=== PATIENT | male | born 1995 ===

== ENCOUNTER 2020-12-12 10:55 | Outpatient (REF) | payer MEDICAID, SELFPAY | END 2020-12-12 10:56 | disposition home or self-care (01) | LOC: HO.LAB 10:55 | PROVIDERS: Visit Provider Internal Medicine | DX: Z20.822 Contact with and (suspected) exposure to COVID-19 (principal) | CPT/HCPCS: 36415; C9803; U0003; U0005 ==

== ENCOUNTER 2020-12-13 14:14 | Emergency (ER) | payer MEDICAID, SELFPAY ==
--- NOTE | ~2020-12-13 | XR_ITS ---
EXAMINATION: XR TOES, RIGHT CLINICAL INFORMATION: Pain COMPARISON: None TECHNIQUE: 3 views of the right toes were obtained. FINDINGS: There are no fractures or dislocations. No joint effusion is identified. No bone, joint or soft tissue abnormality is demonstrated. XR/XR toe RT min 2V IMPRESSION: No acute osseous abnormality of the right first toe.
[2020-12-13 14:37] VITALS: BP 115/74; PULSE 80; RESP 18; O2SAT 97; BMI 19.9
--- NOTE | 2020-12-13 15:56 | ED.LOWEXIN ---
HPI - Extremity Injury (Lower) General Chief Complaint: Extremity Injury, Lower <SUZANNA Mathew - Last Filed: 12/13/20 21:54> Stated Complaint: QUEST INGROWN TOENAIL R FOOT <SUZANNA Mathew - Last Filed: 12/13/20 21:54> Time Seen by Provider: 12/13/20 15:39 <SUZANNA Mathew - Last Filed: 12/13/20 21:54> History of Present Illness HPI Narrative: Patient complains of right big toe pain, it was red and swollen around the nail bed and had pus came out and now the pain is somewhat improved and the discomfort has been going on for several weeks gradually worsening around the nail bed, no acute injury <SUZANNA Mathew Last Filed: 12/13/20 21:54> Related Data Home Medications: Previous Rx's Medication Instructions Recorded cephalexin 500 mg PO QID 7 Days #28 tab 12/13/20 ibuprofen 600 mg PO Q6H PRN #20 tab 12/13/20 oxycodone-acetaminophen [Percocet] 1 tab PO Q6H PRN #7 tab 12/13/20 <SUZANNA Mathew - Last Filed: 12/13/20 21:54> Allergies/Adverse Reactions: Allergies Allergy/AdvReac Type Severity Reaction Status Date / Time No Known Allergies Allergy Verified 12/13/20 14:36 <SUZANNA Mathew - Last Filed: 12/13/20 21:54> Review of Systems Review of Systems: Positive for right big toe pain Negatives are no fever no chills no rash no joint pain no wounds no numbness weakness or paresthesias <SUZANNA Mathew - Last Filed: 12/13/20 21:54> [facility] Past Medical History Source: nursing notes reviewed <SUZANNA Mathew - Last Filed: 12/13/20 21:54> Medical History: Medical History (Updated 12/14/20 @ 00:00 by Omar Pires) Patient denies medical problems <SUZANNA Mathew - Last Filed: 12/13/20 21:54> Social History Social History: Social History Advance Directives: No Advance Directives Information Provided: No <SUZANNA Mathew Last Filed: 12/13/20 21:54> Physical Exam Vital Signs: Vital Signs: Last Vital Signs Pulse 80 12/13/20 14:37 Resp 18 12/13/20 14:37 BP 115/74 12/13/20 14:37 Pulse Ox 97 12/13/20 14:37 Body Mass Index 19.9 <SUZANNA Mathew - Last Filed: 12/13/20 21:54> Vital Signs: Last Vital Signs Pulse 80 12/13/20 14:37 Resp 18 12/13/20 14:37 BP 115/74 12/13/20 14:37 Pulse Ox 97 12/13/20 14:37 Body Mass Index 19.9 <Lenin Velazquez MD - Last Filed: 12/19/20 07:48> General appearance no acute distress Neck is supple Respiratory no acute distress Extremities the right big toe head redness around the nail bed on both sides of the toe there was no significant swelling there was mild erythema around the nail bed, there was full range of motion of the toe and of the foot there was no lymphangitis there was no wound no discharge <SUZANNA Mathew - Last Filed: 12/13/20 21:54> Course Course Course Narrative: Right big toe was cleansed with Betadine Digital block with 8 cc of 1% lidocaine achieved very good anesthesia Ingrown sections of the nail were removed from both sides of the nail, there was no pus but as there was some erythema around the nailbed patient was treated with antibiotic Dressing was applied <SUZANNA Mathew - Last Filed: 12/13/20 21:54> I have reviewed the chart <Lenin Velazquez MD - Last Filed: 12/19/20 07:48> Discharge Plan Discharge Clinical Impression: Ingrown nail <SUZANNA Mathew - Last Filed: 12/13/20 21:54> Patient Disposition: Home, Self-Care <SUZANNA Mathew - Last Filed: 12/13/20 21:54> Additional Instructions: I removed ingrown nails sections from both sides of the toe, it does look red and inflamed so we are going to do antibiotic for possible infection Return any time for worse pain and swelling, discharge from wound, spreading redness, any worse condition or any concerns 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 <SUZANNA Mathew Last Filed: 12/13/20 21:54> Prescriptions: New cephalexin 500 mg tablet 500 mg PO QID 7 Days Qty: 28 RF: 0 ibuprofen 600 mg tablet 600 mg PO Q6H PRN (Reason: pain) Qty: 20 RF: 0 oxycodone-acetaminophen [Percocet] 5-325 mg tablet 1 tab PO Q6H PRN (Reason: pain) Qty: 7 RF: 0 <SUZANNA Mathew - Last Filed: 12/13/20 21:54> Stand Alone Forms: Work/School Release <SUZANNA Mathew - Last Filed: 12/13/20 21:54> Interventions: ED Discharge Assessment Last Done: 12/13/20 16:55 <SUZANNA Mathew - Last Filed: 12/13/20 21:54> Discharge Date/Time: 12/13/20 16:55 <SUZANNA Mathew - Last Filed: 12/13/20 21:54>
[2020-12-13] MEDS: Lidocaine HCl 1 % MPF 5 ML VIAL SUBCUT ×2 (15:57)
[2020-12-13] MEDS: Ibuprofen 600 MG TABLET PO (16:45)
[2020-12-13] MEDS: cephALEXin 500 MG CAPSULE PO (16:46)
== END 2020-12-13 16:55 | disposition home or self-care (01) ==
PROVIDERS: Emergency Provider Emergency Medicine
DX: L60.0 Ingrowing nail (principal)
CPT/HCPCS: 11730; 73660; 99283; 99284

== ENCOUNTER 2021-07-07 10:34 | Outpatient (REF) | payer MEDICAID, SELFPAY | END 2021-07-07 10:35 | disposition home or self-care (01) | LOC: HO.LAB 10:34 | PROVIDERS: Visit Provider Internal Medicine | DX: Z20.822 Contact with and (suspected) exposure to COVID-19 (principal) | CPT/HCPCS: C9803; U0003; U0005 ==

== ENCOUNTER 2021-08-01 13:16 | Outpatient (REF) | payer MEDICAID, SELFPAY | END 2021-08-01 13:17 | disposition home or self-care (01) | LOC: HO.LAB 13:16 | PROVIDERS: Visit Provider Internal Medicine | DX: Z20.822 Contact with and (suspected) exposure to COVID-19 (principal) | CPT/HCPCS: C9803; U0003; U0005 ==

== ENCOUNTER 2021-08-30 07:52 | Emergency (ER) | payer MEDICAID, SELFPAY ==
[2021-08-30 07:59] VITALS: BP 131/76; PULSE 65; RESP 16; TEMP 36.6; O2SAT 97; BMI 19.9
--- NOTE | 2021-08-30 09:23 | ED_ITS ---
HPI - Dental/Oral General Chief complaint: Dental/Oral Stated complaint: dental pain Time Seen by Provider: 08/30/21 09:22 Source: patient Mode of arrival: ambulatory Limitations: no limitations History of Present Illness HPI Narrative: 26-year-old male came in for evaluation of dental pain. Started 2 days ago, no swelling or fluctuation, no facial swelling. Related Data Previous Rx's Medication Instructions Recorded cephalexin 500 mg tablet 500 mg PO QID 7 Days #28 tab 12/13/20 ibuprofen 600 mg tablet 600 mg PO Q6H PRN #20 tab 12/13/20 oxycodone-acetaminophen 5 mg-325 1 tab PO Q6H PRN #7 tab 12/13/20 mg tablet (Percocet) amoxicillin 500 mg tablet 500 mg PO Q12H #14 tab 08/30/21 Allergies Allergy/AdvReac Type Severity Reaction Status Date / Time No Known Allergies Allergy Verified 12/13/20 14:36 Review of Systems Review of Systems: All other systems are reviewed and are negative Constitutional: Reports as per HPI and Reports no additional constitutional complaints Eyes: Reports as per HPI and Reports no additional eye complaints Reports system reviewed and no additional complaints, except as documented Cardiovascular: Reports as per HPI and Reports no additional cardiovascular complaints Respiratory: Reports as per HPI and Reports no additional respiratory complaints Gastrointestinal: Reports as per HPI and Reports no additional gastrointestinal complaints Genitourinary: Reports no additional female genitourinary complaints Musculoskeletal: Reports no additional musculoskeletal complaints Skin/Breast: Reports system reviewed and no additional complaints, except as docu Psychiatric: Reports no additional psychiatric complaints Endocrine: Reports no additional endocrine complaints Hematologic/Lymphatic: Reports no additional hematologic/lymphatic complaints Allergic/Immunologic: Reports no additional allergic/immunologic complaints Reports system reviewed and no additional complaints, except as documented and Reports Abnormal speech present [facility] Past Medical History Medical History Patient denies medical problems Social History Social History Advance Directives: No Advance Directives Information Provided: No Physical Exam Vital Signs: Vital Signs: Last Vital Signs Temp 97.8 F 08/30/21 07:59 Pulse 65 08/30/21 07:59 Resp 16 08/30/21 07:59 BP 131/76 08/30/21 07:59 Pulse Ox 97 08/30/21 07:59 Body Mass Index 19.9 Vital signs have been reviewed as appeared to be correct. Blood pressure gilma l. Heart rate normal. Respiration rate normal. Temperature normal. Oxygen saturation normal. Appearance: Alert. Oriented X3. No acute distress. Head: Normal external exam. Normocephalic. Atraumatic. No Nation signs noted. No raccoon eyes noted Dental exam: Mild tenderness in the left upper 3rd molar tooth, no decay, no swelling, no fluctuation. Eyes: PERRLA. EOMI. Conjunctiva and sclera normal. Eyelids normal. ENT: TM's Normal. Pharynx normal. Uvula midline. Moist mucous membranes. No trismus noted. No drooling noted. No muffled voice noted. Neck: Normal inspection. Neck supple. FROM. No adenopathy. Thyroid Normal. No meningeal signs. No neck mass noted. CVS: Normal heart rate and rhythm. Heart sound normal. No murmurs noted. Pulses normal throughout. Respiratory: No respiratory distress. Painless inspiration. Breath sounds normal. No wheezes/rales/rhonchi noted. Chest nontender. No accessory muscle usage noted or decreased air movement noted. Abdomen: Soft and nontender. Bowel sounds normal in all 4 quadrants. No distention noted. No organomegaly noted. No visible injury noted. Back: No CVA tenderness. Full range of motion noted. Skin: Skin warm and dry. Normal skin color. Normal skin turgor. No rashes/lesions/lacerations noted. Extremities: No lower extremity edema. Extremities exhibit normal range of motion. Extremities nontender. Neuro: Oriented X 3. Cranial nerve exam: II-XII are grossly intact No motor deficit. No sensory deficit. Reflexes normal. Course Course Course Narrative: Assessment and plan. 26-year-old male came in with a dental pain, no anam cellulitis or abscess. Will start the patient on amoxicillin and follow-up with his dentist. Discharge Plan Discharge Clinical Impression: Toothache Patient Disposition: Home, Self-Care Instructions: Toothache (ED) Prescriptions: New amoxicillin 500 mg tablet 500 mg PO Q12H Qty: 14 RF: 0 No Action cephalexin 500 mg tablet 500 mg PO QID 7 Days Qty: 28 RF: 0 ibuprofen 600 mg tablet 600 mg PO Q6H PRN (Reason: pain) Qty: 20 RF: 0 oxycodone-acetaminophen [Percocet] 5-325 mg tablet 1 tab PO Q6H PRN (Reason: pain) Qty: 7 RF: 0 Referrals: [facility] [Primary Care Provider] - 2 days Stand Alone Forms: Work/School Release
== END 2021-08-30 09:38 | disposition home or self-care (01) ==
PROVIDERS: Emergency Provider Emergency Medicine
DX: K08.89 Other specified disorders of teeth and supporting structures (principal)
CPT/HCPCS: 99283

== ENCOUNTER 2022-01-30 13:02 | Emergency (ER) | payer MEDICAID, SELFPAY ==
--- NOTE | ~2022-01-30 | XR_ITS ---
EXAMINATION: XR CHEST CLINICAL INFORMATION: Cough. COMPARISON: None TECHNIQUE: 2 views of the chest were obtained. FINDINGS: No significant abnormality is noted involving the heart, lungs, mediastinum, bony thorax or soft tissues. XR/XR chest 2V IMPRESSION: Unremarkable chest examination.
[2022-01-30 14:28] VITALS: BP 135/67; PULSE 74; RESP 18; TEMP 37; O2SAT 97; BMI 21.4
[2022-01-30 14:57] LABS: COVID-19 Test Negative (Negative)
[2022-01-30 14:58] LABS: Influenza A Negative (Negative); Influenza B2 Negative (Negative)
--- NOTE | 2022-01-30 15:04 | ED.URI ---
HPI - URI/Sore Throat General Chief Complaint: Upper Respiratory Symptoms Stated Complaint: COUGH Time Seen by Provider: 01/30/22 14:57 Source: patient Mode of arrival: ambulatory Limitations: no limitations History of Present Illness HPI Narrative: Patient is a 26-year-old male no significant past medical history. Presents emergency department for evaluation of a persistent cough. It is intermittently productive and has some mild chest discomfort when coughing. Has tried cough drops with some relief, and cough syrup with no relief. Reports his significant other had tested positive for influenza one month ago and he to develop symptoms so he did not get tested. He does report that he had COVID-19 infection in October 2021, he is currently unvaccinated for COVID-19. Denies fevers, ear pain, ear drainage, nasal congestion, rhinorrhea, sore throat, neck pain, chest pain, palpitations, shortness of breath difficulty breathing, nausea, vomiting, abdominal pain, pedal edema. Related Data Previous Rx's Medication Instructions Recorded cephalexin 500 mg tablet 500 mg PO QID 7 Days #28 tab 12/13/20 ibuprofen 600 mg tablet 600 mg PO Q6H PRN #20 tab 12/13/20 oxycodone-acetaminophen 5 mg-325 1 tab PO Q6H PRN #7 tab 12/13/20 mg tablet (Percocet) amoxicillin 500 mg tablet 500 mg PO Q12H #14 tab 08/30/21 benzonatate 100 mg capsule 100 mg PO TID PRN 7 Days #20 cap 01/30/22 Allergies Allergy/AdvReac Type Severity Reaction Status Date / Time No Known Allergies Allergy Verified 01/30/22 14:27 Review of Systems Review of Systems: Constitutional: No weight loss, fever, chills, weakness or fatigue. Skin: No rash or itching. Cardiovascular: No chest pain, chest pressure or chest discomfort. No palpitations or pedal edema. Respiratory: + positive cough No shortness of breath, or sputum production. Gastrointestinal: No anorexia, nausea, vomiting or diarrhea. No abdominal pain or blood in stool. Genitourinary: No burning micturition. No urinary frequency or incontinence. Musculoskeletal: No muscle pain, back pain, joint pain or stiffness. Psychiatric: No depression or anxiety. [facility], [facility] Past Medical History Attestation statement: The following information was validated with the patient. Source: old records reviewed Medical History Patient denies medical problems Social History Social History Advance Directives: No Advance Directives Information Provided: Yes Physical Exam Vital Signs: Vital Signs: Last Vital Signs Temp 98.6 F 01/30/22 14:28 Pulse 74 01/30/22 14:28 Resp 18 01/30/22 14:28 BP 135/67 01/30/22 14:28 Pulse Ox 97 01/30/22 14:28 BMI result Body Mass Index 21.4 Vital signs have been reviewed as normal and appeared to be correct. Blood pressure normal.? Heart rate normal.? Respiration rate normal. Temperature normal.? Oxygen saturation normal. Appearance: Alert.?Oriented to person, place and time. No acute distress.?Normal affect. Eyes: Pupils equal, round and reactive to light.? ENT: Pharynx normal.?? Neck: Normal inspection.? Neck supple.?? CVS: Heart sounds normal. Normal heart rate and rhythm.? Pulses normal.?? Respiratory: No respiratory distress.? Lung sounds clear to auscultation bilaterally?? Abdomen: Soft and non-tender. Skin: Skin warm and dry.? Normal skin color.? Extremities: No lower extremity edema.? Neuro: Moves all extremities spontaneously. Sensation intact bilaterally. No focal neuro deficits. Ambulates with normal steady gait. Course Course Course Narrative: Patient is a 26 year male being evaluated for persistent cough x1 month. He is well appearing, nontoxic, afebrile, hemodynamically stable, managing secretions, speaking in clear full sentences, no apparent respiratory distress. No muffled voice, no hoarseness, not consistent with pharyngitis, peritonsillar abscess. Based on reported history does not seem consistent with allergic rhinitis or GERD, although we did discuss these possibilities. COVID- 19 and influenza testing obtained in triage were both negative. Chest x-ray reveals no acute findings. Cough is most consistent with bronchitisafter recent viral infection, given new prescription for benzonatate, discussed reasons to return back to the emergency department, and advised follow-up with primary care provider within 1 week. MDM - URI/Sore Throat Medical Records Attestation: I reviewed the patient's medical records. Lab Data Labs: Lab Results 01/30/22 01/30/22 Range/Units 14:34 14:34 COVID-19 (ALICE) Negative (Negative) COVID-19 Clin Com See Note Influenza Type A (EMELINA) Negative (Negative) Influenza Type B (EMELINA) Negative (Negative) Influenza A & B Note See Note Imaging Data Chest x-ray: Radiologist's impression: FINDINGS: No significant abnormality is noted involving the heart, lungs, mediastinum, bony thorax or soft tissues. XR/XR chest 2V IMPRESSION: Unremarkable chest examination. Discharge Plan Discharge Clinical Impression: Bronchitis Patient Disposition: Home, Self-Care Instructions: Acute Bronchitis (ED), Acute Cough (ED) Additional Instructions: Take Tessalon Perles prescribed. Please return to the emergency department worsened symptoms or concerns. You should contact your primary care provider to schedule follow-up visit within 1 week. Prescriptions: New benzonatate 100 mg capsule 100 mg PO TID PRN (Reason: cough) 7 Days Qty: 20 0RF No Action cephalexin 500 mg tablet 500 mg PO QID 7 Days Qty: 28 0RF ibuprofen 600 mg tablet 600 mg PO Q6H PRN (Reason: pain) Qty: 20 0RF oxycodone-acetaminophen [Percocet] 5-325 mg tablet 1 tab PO Q6H PRN (Reason: pain) Qty: 7 0RF amoxicillin 500 mg tablet 500 mg PO Q12H Qty: 14 0RF Referrals: Physician,Unknown J [Primary Care Provider] - 1 week Interventions: ED Discharge Assessment Last Done: 01/30/22 16:05 Discharge Date/Time: 01/30/22 16:06
== END 2022-01-30 16:06 | disposition home or self-care (01) ==
PROVIDERS: Emergency Provider Emergency Medicine
DX: J40 Bronchitis, not specified as acute or chronic (principal); Z20.822 Contact with and (suspected) exposure to COVID-19
CPT/HCPCS: 71046; 87502; 87635; 99282; 99283

== ENCOUNTER 2022-10-11 03:39 | Emergency (ER) | payer MEDICAID, SELFPAY ==
[2022-10-11 03:49] VITALS: BP 126/84; PULSE 95; RESP 18; TEMP 36.6; O2SAT 96; BMI 20.5
[2022-10-11 04:00] VITALS: BP 122/81; PULSE 58; TEMP 36.4; O2SAT 97
--- NOTE | 2022-10-11 04:00 | ED.HA ---
HPI - Headache General Chief Complaint: Headache Stated Complaint: migraine, nausea Time Seen by Provider: 10/11/22 03:50 Source: patient Mode of arrival: ambulatory Limitations: no limitations History of Present Illness HPI Narrative: 27-year-old male who presents emergency department for evaluation of a migraine headache. The patient states that he gets migraine headaches 2 to 3 times a week. He states that 3 days prior he developed a headache that has not gone away. He states that the pain came on gradually. The pain is located on the left side of his head, the pain is a constant, throbbing sensation which is 9/10 at its worst. The pain is associated with nausea without vomiting, photophobia and phonophobia. He denied change in his vision. He denied numbness or weakness. He denied fever, chills, neck pain, neck stiffness, chest pain, shortness of breath, abdominal pain. MD elicited complaint: migraine Pertinent past history: migraines Onset (ago): day(s) (3) Onset description: gradually Location: left Severity: severe Pain scale (0-10): 9 Quality & Timing: throbbing Exacerbating factors: light and noise Relieving factors: nothing Associated symptoms: nausea, photophobia and sensitivity to sound Related Data Previous Rx's Medication Instructions Recorded cephalexin 500 mg tablet 500 mg PO QID 7 days #28 tabs 12/13/20 ibuprofen 600 mg tablet 600 mg PO Q6H PRN pain #20 tabs 12/13/20 oxycodone-acetaminophen 5 mg-325 1 tab PO Q6H PRN pain #7 tabs 12/13/20 mg tablet (Percocet) amoxicillin 500 mg tablet 500 mg PO Q12H #14 tabs 08/30/21 benzonatate 100 mg capsule 100 mg PO TID PRN cough 1 week #20 01/30/22 caps metoclopramide HCl 10 mg tablet 10 mg PO Q6H PRN nausea and 10/11/22 (Reglan) vomiting #14 tabs Allergies Allergy/AdvReac Type Severity Reaction Status Date / Time No Known Allergies Allergy Verified 01/30/22 14:27 Review of Systems Review of Systems: Yes all other systems are reviewed and are negative PMFSH Past Medical History [facility] Narrative: Past medical history: Migraines. Past surgical history: None. Social history: The patient denies tobacco use. He states that he rarely drinks alcohol. He denies drug use Medical History Patient denies medical problems Social History Social History Alcohol intake: current Alcohol intake frequency: holidays/special occasions only Smoked in Last 30 Days: No Use of substances other than those prescribed or required for medical reasons: No Advance Directives: No Physical Exam Vital Signs: Vital Signs: Last Vital Signs Temp 97.6 F 10/11/22 04:00 Pulse 58 10/11/22 04:00 Resp 18 10/11/22 03:49 BP 122/81 10/11/22 04:00 Pulse Ox 97 10/11/22 04:00 O2 Del Method 10/11/22 04:00 BMI result Body Mass Index 20.5 Const: General: cooperative and no acute distress Orientation/consciousness: oriented to person and oriented to place Limitations: no limitations HEENT: Head: Yes normal to inspection, Yes normocephalic and Yes atraumatic Ears: external ears normal General nose exam: Normal external nose present Face and sinus: Yes normal facial exam Mouth: Normal oral and palatal mucosa present Throat: Yes posterior oropharynx normal Eyes: General: appearance normal, both eyes and all related structures Pupils: Equal, round and reactive pupils present Neck: Neck: Yes normal visual inspection, Yes no lymphadenopathy, Yes trachea midline and Yes supple Chest: Chest palpation & inspection: normal inspection of the chest and normal palpation of entire chest wall Resp: Effort & Inspection: normal respiratory effort and able to speak in complete sentences Auscultation: clear to auscultation bilaterally Cardio: Rate: regular rate Rhythm: regular rhythm Heart sounds: S1 normal heart sound present, S2 normal heart sound present and no murmurs GI: Inspection: Yes normal to inspection Palpation (GI): Soft to palpation, nontender and no guarding Auscultation: normal bowel sounds : General: Yes no CVA tenderness Back/Spine/Pelvis: Back: no CVA tenderness Skin: General skin exam: no rashes or lesions noted Neuro: General: oriented to person and oriented to place Cranial nerves: Yes CN's II-XII intact bilaterally and Yes Equal, round and reactive pupils present Cognition (Neuro): normal cognition Motor exam (neuro): 5/5 motor strength present throughout Extrem: General: Yes normal to inspection Psych: Appearance: grossly normal Speech and movement: Normal speech and movement present Affect: normal affect Attitude: cooperative Thought process: Normal thought process present Thought content: Normal thought content present Course Course Course Narrative: 27-year-old male who presents emergency department for evaluation of a migraine headache. Patient does have a history of migraines. He states that this they came on gradually 3 days prior. He took ibuprofen with no relief for the pain. The pain is a left-sided throbbing sensation which is 9/10 at its worst. It associated nausea, photophobia and phonophobia. Patient's physical examination was unremarkable. I ordered normal saline x1 L, Benadryl 50 mg IV and Reglan 10 mg IV. 0556: Patient's headache resolved completely. The patient will be discharged home. Patient will be started on a migraine regimen of regular and 10 mg, Benadryl 50 mg Excedrin migraine 2 tablets every 6 hours as needed for migraine headaches. Medications Administered Discontinued Medications Generic Name Dose Route Start Last Admin Trade Name Ana PRN Reason Stop Dose Admin Diphenhydramine HCl 50 mg 10/11/22 04:00 10/11/22 04:12 Diphenhydramine Hcl 50 Mg/Ml Vial IVPUSH 10/11/22 04:01 50 mg ONCE STA Administration Sodium Chloride 1,000 mls @ 999 mls/hr 10/11/22 04:00 10/11/22 05:33 Ns IV 10/11/22 05:00 Infused .Q1H1M STA Infusion Ketorolac Tromethamine 30 mg 10/11/22 04:01 10/11/22 04:11 Ketorolac Tromethamine 15 Mg/Ml Vial IVPUSH 10/11/22 04:02 30 mg ONCE STA Administration Metoclopramide HCl 10 mg 10/11/22 04:00 10/11/22 04:11 Metoclopramide Hcl 10 Mg/2 Ml Vial IVPUSH 10/11/22 04:01 10 mg ONCE STA Administration Discharge Plan Discharge Clinical Impression: Migraine Patient Disposition: Home, Self-Care Instructions: Migraine Headache (ED) Additional Instructions: Your symptoms are consistent with a migraine. I want you to take the following 3 medications together every 6 hours as needed for headache, nausea or vomiting. Reglan (metoclopramide) in 10 mg, 1 pill Benadryl 25 mg, 2 pills Excedrin migraine, 2 pills. After you take these medications, lie down in a dark quiet room and try to fall asleep. These medications will make you sleepy, do not drive or work after taking these medications. Follow-up with your doctor in 2 days. Please return to the emergency department if your symptoms get worse or if you develop any symptoms that are concerning to you. Prescriptions: New metoclopramide HCl [Reglan] 10 mg tablet 10 mg PO Q6H PRN (Reason: nausea and vomiting) Qty: 14 0RF No Action cephalexin 500 mg tablet 500 mg PO QID 7 Days Qty: 28 0RF ibuprofen 600 mg tablet 600 mg PO Q6H PRN (Reason: pain) Qty: 20 0RF oxycodone-acetaminophen [Percocet] 5-325 mg tablet 1 tab PO Q6H PRN (Reason: pain) Qty: 7 0RF amoxicillin 500 mg tablet 500 mg PO Q12H Qty: 14 0RF benzonatate 100 mg capsule 100 mg PO TID PRN (Reason: cough) 7 Days Qty: 20 0RF
[2022-10-11] MEDS: Ketorolac Tromethamine 15 MG/ML VIAL 30 MG IVPUSH (04:11)
[2022-10-11] MEDS: Metoclopramide HCl 10 MG/2 ML VIAL IVPUSH (04:11)
[2022-10-11] MEDS: 0.9 % Sodium Chloride 1,000 ML 999 ML IV (04:12)
[2022-10-11] MEDS: diphenhydrAMINE HCL 50 MG/ML VIAL IVPUSH (04:12)
== END 2022-10-11 06:17 | disposition home or self-care (01) ==
PROVIDERS: Emergency Provider Emergency Medicine Emergency Medical Services
DX: G43.909 Migraine, unspecified, not intractable, without status migrainosus (principal); H53.143 Visual discomfort, bilateral; Z79.899 Other long term (current) drug therapy
CPT/HCPCS: 96361; 96374; 96375; 99284; 99285; J1200; J1885; J2765

== ENCOUNTER 2023-01-24 03:04 | Emergency (ER) | payer MEDICAID, SELFPAY ==
--- NOTE | ~2023-01-24 | XR_ITS ---
EXAMINATION: XR CHEST CLINICAL INFORMATION: Cough COMPARISON: 01/30/2022 TECHNIQUE: Frontal view of the chest was obtained. FINDINGS: The lungs are well expanded. There is no focal consolidation, edema, or effusion. No pneumothorax. The cardiomediastinal silhouette is within normal limits. No acute osseous abnormality. XR/XR chest 1V IMPRESSION: Clear lungs.
[2023-01-24 03:13] VITALS: BP 140/81; PULSE 71; RESP 16; TEMP 36.5; O2SAT 97; BMI 21.8
[2023-01-24 03:35] LABS: MANUAL DIFF FLAG NO
[2023-01-24 03:36] LABS: Basophils Absolute Auto 0.1 X10*3/uL (0.0-0.2); Basophils Percent Auto 0.6 % (0-2); Eosinophils Absolute Auto 1.1 X10*3/uL (0.0-0.4); Eosinophils Percent Auto 8.3 % (0-4); Hematocrit 46.5 % (42.0-52.0); Hemoglobin 15.8 g/dl (14.0-18.0); Imm Gran Abs Auto 0.08 X10*3/uL (0.00-0.03); Imm Gran Pct Auto 0.6 % (0.0-0.4); Lymphocytes Absolute Auto 2.8 X10*3/uL (1.2-4.9); Lymphocytes Percent Auto 21.7 % (20-40); Mean Corpuscular Volume 88.2 fL (80.0-98.0); Mean Platelet Volume 10.7 fL (9.4-12.4); Monocytes Absolute Auto 0.8 X10*3/uL (0.1-1.2); Monocytes Percent Auto 6.4 % (2-11); Neutrophils Absolute Auto 7.9 x10*3/uL (2.0-8.3); Neutrophils Percent Auto 62.4 % (45-73); Platelet Count 278 X10*3/uL (160-400); Red Blood Count 5.27 X10*6/uL (4.60-5.80); Red Cell Distribution Width 11.9 % (11.0-16.0); White Blood Count 12.7 X10*3/uL (4.8-10.8)
[2023-01-24 03:49] LABS: Anion Gap 14 (12-20); Blood Urea Nitrogen 13 mg/dL (9-16); Carbon Dioxide 24 mmol/L (22-29); Chloride 106 mmol/L (96-108); Creatinine Clr Calc Pharmacy 132.9; Estimated Glomerular Filt Rate > 60; Glucose Random 97 mg/dL (60-115); Potassium 4.2 mmol/L (3.3-5.1); Sodium 140 mmol/L (135-145)
[2023-01-24 03:50] LABS: COVID-19 Test Negative (Negative); IDNOW Serial# 08D9AD1C; IDNOW Serial# BCCEAD1C; Influenza A Negative (Negative); Influenza B2 Negative (Negative)
--- NOTE | 2023-01-24 04:36 | ED_ITS ---
HPI - URI/Sore Throat General Chief Complaint: Upper Respiratory Symptoms Stated Complaint: cough Time Seen by Provider: 01/24/23 04:26 Source: patient Mode of arrival: ambulatory Limitations: no limitations History of Present Illness HPI Narrative: Patient otherwise healthy been congested for last 4 days with nasal congestion clear discharge dry cough and pleuritic right chest pain no fever no nausea vomiting diarrhea Related Data Previous Rx's Medication Instructions Recorded cephalexin 500 mg tablet 500 mg PO QID 7 days #28 tabs 12/13/20 ibuprofen 600 mg tablet 600 mg PO Q6H PRN pain #20 tabs 12/13/20 oxycodone-acetaminophen 5 mg-325 1 tab PO Q6H PRN pain #7 tabs 12/13/20 mg tablet (Percocet) amoxicillin 500 mg tablet 500 mg PO Q12H #14 tabs 08/30/21 benzonatate 100 mg capsule 100 mg PO TID PRN cough 1 week #20 01/30/22 caps metoclopramide HCl 10 mg tablet 10 mg PO Q6H PRN nausea and 10/11/22 (Reglan) vomiting #14 tabs amoxicillin 875 mg-potassium 1 tab PO BID #20 tabs 01/24/23 clavulanate 125 mg tablet benzonatate 200 mg capsule 200 mg PO TID PRN cough #20 caps 01/24/23 prednisone 20 mg tablet 40 mg PO DAILY #10 tabs 01/24/23 Allergies Allergy/AdvReac Type Severity Reaction Status Date / Time No Known Allergies Allergy Verified 01/24/23 03:16 Review of Systems Review of Systems: Yes all other systems are reviewed and are negative PMFSH Past Medical History Medical History Patient denies medical problems Social History Social History Alcohol intake: current Alcohol intake frequency: holidays/special occasions only Advance Directives: No Advance Directives Information Provided: Yes Physical Exam Vital Signs: Vital Signs: Last Vital Signs Temp 97.8 F 01/24/23 04:53 Pulse 71 01/24/23 04:53 Resp 16 01/24/23 04:53 BP 120/75 01/24/23 04:53 Pulse Ox 97 01/24/23 04:53 O2 Del Method Room Air 01/24/23 04:53 BMI result Body Mass Index 21.8 Appearance: Alert. Oriented X3. No acute distress. Eyes: No pallor or icterus ENT: Pharynx normal. Oral Mucosa moist postnasal drip++ inflamed nasal turbinate Neck: Normal inspection. Neck supple. CVS: Normal heart rate and rhythm. Pulses normal. Respiratory: No respiratory distress. Equal air entry bilateral, prolonged expiration frequent cough Abdomen: Soft and nontender. Bowel sounds are present, Skin: Skin warm and dry. Normal skin color. Normal skin turgor. Extremities: No lower extremity edema. No calf tenderness Neuro: Oriented X 3. No motor deficit. Medications Administered Discontinued Medications Generic Name Dose Route Start Last Admin Trade Name Freq PRN Reason Stop Dose Admin Amoxicillin/Clavulanate Potassium 875 mg 01/24/23 05:06 01/24/23 05:14 Amoxicillin/Potassium Clav 875 Mg Tablet PO 01/24/23 05:07 875 mg ONCE ONE Administration Benzonatate 200 mg 01/24/23 04:45 01/24/23 04:55 Benzonatate 100 Mg Capsule PO 01/24/23 04:46 200 mg ONCE ONE Administration Dexamethasone 10 mg 01/24/23 04:45 01/24/23 04:55 Dexamethasone 2 Mg Tablet PO 01/24/23 04:46 10 mg ONCE ONE Administration Medical Decision Making Lab Data 01/24/23 03:30 01/24/23 03:30 Labs: Lab Results 01/24/23 01/24/23 01/24/23 Range/Units 03:30 03:30 03:30 WBC 12.7 H (4.8-10.8) X10*3/uL RBC 5.27 (4.60-5.80) X10*6/uL Hgb 15.8 (14.0-18.0) g/dl Hct 46.5 (42.0-52.0) % MCV 88.2 (80.0-98.0) fL MCH 30.0 (27.0-33.0) pg MCHC 34.0 (31.0-36.0) g/dl RDW 11.9 (11.0-16.0) % Plt Count 278 (160-400) X10*3/uL MPV 10.7 (9.4-12.4) fL Immature Gran % (Auto) 0.6 H (0.0-0.4) % Neut % (Auto) 62.4 (45-73) % Lymph % (Auto) 21.7 (20-40) % [facility] % (Auto) 6.4 (2-11) % Eos % (Auto) 8.3 H (0-4) % Baso % (Auto) 0.6 (0-2) % Lymph # (Auto) 2.8 (1.2-4.9) X10*3/uL [facility] # (Auto) 0.8 (0.1-1.2) X10*3/uL Eos # (Auto) 1.1 H (0.0-0.4) X10*3/uL Baso # (Auto) 0.1 (0.0-0.2) X10*3/uL Abs Immat Gran (auto) 0.08 H (0.00-0.03) X10*3/uL Absolute Neuts (auto) 7.9 (2.0-8.3) x10*3/uL Absolute Nucleated RBC 0.000 (0.0-0.012) X10*3/uL Nucleated RBC % (auto) 0.0 (0.0-0.2) /100WBC Sodium (135-145) mmol/L Potassium (3.3-5.1) mmol/L Chloride (96-108) mmol/L Carbon Dioxide (22-29) mmol/L Anion Gap (12-20) BUN (9-16) mg/dL Creatinine (0.5-1.4) mg/dL Estim Creat Clear Calc Estimated GFR Random Glucose (60-115) mg/dL Calcium (8.4-10.2) mg/dL COVID-19 (ALICE) Negative (Negative) COVID-19 Clin Com See Note Influenza Type A (EMELINA) Negative (Negative) Influenza Type B (EMELINA) Negative (Negative) Influenza A & B Note See Note 01/24/23 Range/Units 03:30 WBC (4.8-10.8) X10*3/uL RBC (4.60-5.80) X10*6/uL Hgb (14.0-18.0) g/dl Hct (42.0-52.0) % MCV (80.0-98.0) fL MCH (27.0-33.0) pg MCHC (31.0-36.0) g/dl RDW (11.0-16.0) % Plt Count (160-400) X10*3/uL MPV (9.4-12.4) fL Immature Gran % (Auto) (0.0-0.4) % Neut % (Auto) (45-73) % Lymph % (Auto) (20-40) % [facility] % (Auto) (2-11) % Eos % (Auto) (0-4) % Baso % (Auto) (0-2) % Lymph # (Auto) (1.2-4.9) X10*3/uL [facility] # (Auto) (0.1-1.2) X10*3/uL Eos # (Auto) (0.0-0.4) X10*3/uL Baso # (Auto) (0.0-0.2) X10*3/uL Abs Immat Gran (auto) (0.00-0.03) X10*3/uL Absolute Neuts (auto) (2.0-8.3) x10*3/uL Absolute Nucleated RBC (0.0-0.012) X10*3/uL Nucleated RBC % (auto) (0.0-0.2) /100WBC Sodium 140 (135-145) mmol/L Potassium 4.2 (3.3-5.1) mmol/L Chloride 106 (96-108) mmol/L Carbon Dioxide 24 (22-29) mmol/L Anion Gap 14 (12-20) BUN 13 (9-16) mg/dL Creatinine 0.91 (0.5-1.4) mg/dL Estim Creat Clear Calc 132.9 Estimated GFR > 60 Random Glucose 97 (60-115) mg/dL Calcium 9.0 (8.4-10.2) mg/dL COVID-19 (ALICE) (Negative) COVID-19 Clin Com Influenza Type A (EMELINA) (Negative) Influenza Type B (EMELINA) (Negative) Influenza A & B Note Discharge Plan Discharge Clinical Impression: Bronchitis Patient Disposition: Home, Self-Care Instructions: Acute Bronchitis (ED) Additional Instructions: Drink plenty of fluids Take medication as prescribed Follow with PCP if not better Prescriptions: New benzonatate 200 mg capsule 200 mg PO TID PRN (Reason: cough) Qty: 20 0RF prednisone 20 mg tablet 40 mg PO DAILY Qty: 10 0RF amoxicillin-pot clavulanate 875-125 mg tablet 1 tab PO BID Qty: 20 0RF No Action cephalexin 500 mg tablet 500 mg PO QID 7 Days Qty: 28 0RF ibuprofen 600 mg tablet 600 mg PO Q6H PRN (Reason: pain) Qty: 20 0RF oxycodone-acetaminophen [Percocet] 5-325 mg tablet 1 tab PO Q6H PRN (Reason: pain) Qty: 7 0RF metoclopramide HCl [Reglan] 10 mg tablet 10 mg PO Q6H PRN (Reason: nausea and vomiting) Qty: 14 0RF amoxicillin 500 mg tablet 500 mg PO Q12H Qty: 14 0RF benzonatate 100 mg capsule 100 mg PO TID PRN (Reason: cough) 7 Days Qty: 20 0RF
[2023-01-24 04:53] VITALS: BP 120/75; PULSE 71; RESP 16; TEMP 36.6; O2SAT 97
[2023-01-24] MEDS: dexAMETHasone 2 MG TABLET 10 MG PO (04:55)
[2023-01-24] MEDS: Benzonatate 100 MG CAPSULE 200 MG PO (04:55)
[2023-01-24] MEDS: Amoxicillin/Potassium Clav 875 MG TABLET PO (05:14)
== END 2023-01-24 05:40 | disposition home or self-care (01) ==
PROVIDERS: Emergency Provider Internal Medicine
DX: J40 Bronchitis, not specified as acute or chronic (principal); R05.9 Cough, unspecified; R07.89 Other chest pain; Z79.899 Other long term (current) drug therapy; Z20.822 Contact with and (suspected) exposure to COVID-19; Z20.828 Contact with and (suspected) exposure to other viral communicable diseases
CPT/HCPCS: 71045; 80048; 85025; 87502; 87635; 99283; 99284; J8540

== ENCOUNTER 2023-03-12 07:01 | Emergency (ER) | payer MEDICAID, SELFPAY ==
--- NOTE | 2023-03-12 | ECG_ITS ---
Test Reason : CP Blood Pressure : / mmHG Vent. Rate : 055 BPM Atrial Rate : 055 BPM P-R Int : 142 ms QRS Dur : 090 ms QT Int : 402 ms P-R-T Axes : 013 042 011 degrees QTc Int : 384 ms Sinus bradycardia with sinus arrhythmia Otherwise normal ECG No previous ECGs available Referred By: Generic ED Physician Electronically Signed By:Mack Sultana
--- NOTE | ~2023-03-12 | XR_ITS ---
EXAMINATION: XR CHEST CLINICAL INFORMATION: Chest pain COMPARISON: Previous chest x-ray most recent December 2022 TECHNIQUE: 2 views of the chest were obtained. FINDINGS: No significant abnormality is noted involving the heart, lungs, mediastinum, bony thorax or soft tissues. XR/XR chest 2V IMPRESSION: Unremarkable examination.
[2023-03-12 07:12] VITALS: BP 104/78; PULSE 66; RESP 18; TEMP 36.5; O2SAT 98; BMI 21.8
[2023-03-12 07:26] VITALS: BP 123/80; PULSE 98; RESP 16; TEMP 36.7; O2SAT 98
--- NOTE | 2023-03-12 07:26 | ED_ITS ---
HPI - Chest Pain General Chief Complaint: Chest Pain Stated Complaint: Intermittent Chest Pain & Arm Pain Time Seen by Provider: 03/12/23 07:26 Source: patient Mode of arrival: ambulatory Limitations: no limitations History of Present Illness HPI narrative: Patient is a 27 year old assigned male at with no reported medical history presenting to the emergency department today with central chest pain. Patient s tates that he has had intermittent chest pain for weeks. Patient states that it is in the center of his chest and gets worse after he eats. Patient states that it randomly comes and randomly goes. Patient denies any dizziness, lightheadedness, abdominal pain, nausea, vomiting, fever, chills, blurry vision, double vision, loss of vision, difficulty breathing, shortness of breath, back pain, night sweats, pain with urination, increased urinary frequency, increased urinary urgency, blood in his urine or stool, syncope or a near syncopal episode, recent trauma or falls, bowel incontinence, bladder incontinence, bowel retention, bladder retention, or any other complaints at this time. Related Data Previous Rx's Medication Instructions Recorded cephalexin 500 mg tablet 500 mg PO QID 7 days #28 tabs 12/13/20 ibuprofen 600 mg tablet 600 mg PO Q6H PRN pain #20 tabs 12/13/20 oxycodone-acetaminophen 5 mg-325 1 tab PO Q6H PRN pain #7 tabs 12/13/20 mg tablet (Percocet) amoxicillin 500 mg tablet 500 mg PO Q12H #14 tabs 08/30/21 benzonatate 100 mg capsule 100 mg PO TID PRN cough 1 week #20 01/30/22 caps metoclopramide HCl 10 mg tablet 10 mg PO Q6H PRN nausea and 10/11/22 (Reglan) vomiting #14 tabs amoxicillin 875 mg-potassium 1 tab PO BID #20 tabs 01/24/23 clavulanate 125 mg tablet benzonatate 200 mg capsule 200 mg PO TID PRN cough #20 caps 01/24/23 prednisone 20 mg tablet 40 mg PO DAILY #10 tabs 01/24/23 omeprazole 40 mg capsule,delayed 40 mg PO DAILY #30 caps 03/12/23 release Allergies Allergy/AdvReac Type Severity Reaction Status Date / Time No Known Allergies Allergy Verified 03/12/23 07:15 Review of Systems Constitutional: Constitutional: Reports no additional constitutional complaints, Denies chills, Denies fever(s) and Denies night sweats Eyes: Eyes: Reports no additional eye complaints, Denies blurry vision, Denies change in vision, Denies diplopia, Denies eye discharge, Denies loss of vision and Denies eye pain ENT: Denies dizziness Cardiovascular: Cardiovascular: Reports no additional cardiovascular complaints, Reports chest pain (intermittent), Denies lightheadedness, Denies Loss of Consciousness and Denies dyspnea Respiratory: Respiratory: Reports no additional respiratory complaints and Denies dyspnea Gastrointestinal: Gastrointestinal: Reports no additional gastrointestinal complaints, Denies abdominal pain, Denies melena, Denies hematochezia, Denies change in bowel habits and Denies change in stool character Genitourinary: Genitourinary: Reports no additional male genitourinary complaints, Denies hematuria, Denies oliguria, Denies difficulty urinating, Denies dysuria, Denies urinary frequency, Denies urinary hesitancy, Denies urinary incontinence and Denies urinary urgency Musculoskeletal: Musculoskeletal: Reports no additional musculoskeletal complaints, Denies numbness and Denies tingling Neurologic: Denies dizziness, Denies loss of vision, Denies numbness and Denies tingling Psychiatric: Psychiatric: Reports no additional psychiatric complaints Endocrine: Endocrine: Reports no additional endocrine complaints Hematologic/Lymphatic: Hematologic/Lymphatic: Reports no additional hematologic/lymphatic complaints Allergic/Immunologic: Allergic/Immunologic: Reports no additional allergic/immunologic complaints [facility] Past Medical History Attestation statement: The following information was validated with the patient. Source: old records reviewed and nursing notes reviewed Medical History Patient denies medical problems Social History Social History Alcohol intake: current Alcohol intake frequency: holidays/special occasions only Smoked in Last 30 Days: No Use of substances other than those prescribed or required for medical reasons: No Advance Directives: No Advance Directives Information Provided: No Physical Exam Vital Signs: Vital Signs: Last Vital Signs Temp 98.1 F 03/12/23 07:26 Pulse 98 03/12/23 07:26 Resp 16 03/12/23 07:26 BP 123/80 03/12/23 07:26 Pulse Ox 98 03/12/23 07:26 O2 Del Method Room Air 03/12/23 07:26 BMI result Body Mass Index 21.8 Const: General: cooperative, no acute distress, alert and awake Nutritional Appearance: well nourished Orientation/consciousness: patient oriented x3 Limitations: no limitations HEENT: Head: Yes normal to inspection and Yes atraumatic Ears: hearing john ssly normal bilaterally and external ears normal General nose exam: Normal external nose present, no nasal discharge noted and no epistaxis Face and sinus: Yes normal facial exam, No abrasion and No laceration Mouth: Normal oral and palatal mucosa present, no drooling and no muffled voice Eyes: General: appearance normal, both eyes and all related structures Periorbital: periorbital findings normal Eyelids: Yes eyelids normal Conjunctivae: conjunctivae normal Pupils: Equal, round and reactive pupils present EOM: EOMs intact bilaterally Neck: Neck: Yes normal visual inspection, Yes full ROM and Yes no lymphadenopathy Chest: Chest palpation & inspection: normal inspection of the chest Resp: Effort & Inspection: normal respiratory effort and able to speak in co mplete sentences Auscultation: clear to auscultation bilaterally Cardio: Rate: regular rate Rhythm: regular rhythm GI: Inspection: Yes normal to inspection Palpation (GI): Soft to palpation, not firm, nontender, no guarding and not rigid Neuro: General: patient oriented x3 and moves all extremities Cranial nerves: Yes Equal, round and reactive pupils present Cognition (Neuro): normal cognition Motor exam (neuro): 5/5 motor strength present throughout Sensory Exam: Normal double simultaneous stimulation for sensation Coordination: [id number] test normal Extrem: General: Yes normal to inspection, Yes full ROM and Yes capillary refill normal Psych: Appearance: grossly normal Mental Status: mental status grossly normal Affect: normal affect Attitude: cooperative Thought process: Normal thought process present Thought content: Normal thought content present Insight: Good insight present (Psych) Medical Decision Making Medical Decision Making MDM Narrative: Patient is a 27 year old assigned male at with no reported medical history presenting to the emergency department today with intermittent chest pain. Patient's physical exam was unremarkable. Patient's blood work was unremarkable. Patient's EKG was unremarkable. Patient's chest x-ray showed no acute process. I explained my physical exam findings as well as all test results to the patient. I answered all questions asked by the patient. I stressed the importance of the patient taking his medication as prescribed. I stressed the importance of the patient following up with his primary care provider. I stressed the importance of the patient returning to the emergency department immediately if his symptoms were to worsen or if he were to develop any dizziness, shortness of breath, d ifficulty breathing, chest pain, blurry vision, loss of vision, nausea, vomiting, abdominal pain, fever, chills, back pain, or any other complaints. Patient verbalized agreement and understanding with this treatment plan and discharge. Differential Diagnosis Differential Diagnoses: The differential diagnosis associated with the presentat ion includes chest pain, GERD Admission/Observation Consideration of admission/observation: Escalation of care including admiss ion/observation considered Patient would have been admitted had there been evidence of a cardiopulmonary cause for his chest pain on his work up. Lab Data MDM Lab Attestation statement: I reviewed the patient's lab results. 03/12/23 07:39 03/12/23 07:39 Labs: Lab Results 03/12/23 03/12/23 03/12/23 Range/Units 07:39 07:39 07:39 WBC 8.4 (4.8-10.8) X10*3/uL RBC 5.41 (4.60-5.80) X10*6/uL Hgb 16.2 (14.0-18.0) g/dl Hct 47.8 (42.0-52.0) % MCV 88.4 (80.0-98.0) fL MCH 29.9 (27.0-33.0) pg MCHC 33.9 (31.0-36.0) g/dl RDW 11.9 (11.0-16.0) % Plt Count 249 (160-400) X10*3/uL MPV 10.6 (9.4-12.4) fL Immature Gran % (Auto) 0.6 H (0.0-0.4) % Neut % (Auto) 61.2 (45-73) % Lymph % (Auto) 23.4 (20-40) % [facility] % (Auto) 6.1 (2-11) % Eos % (Auto) 8.0 H (0-4) % Baso % (Auto) 0.7 (0-2) % Lymph # (Auto) 2.0 (1.2-4.9) X10*3/uL [facility] # (Auto) 0.5 (0.1-1.2) X10*3/uL Eos # (Auto) 0.7 H (0.0-0.4) X10*3/uL Baso # (Auto) 0.1 (0.0-0.2) X10*3/uL Abs Immat Gran (auto) 0.05 H (0.00-0.03) X10*3/uL Absolute Neuts (auto) 5.1 (2.0-8.3) x10*3/uL Absolute Nucleated RBC 0.000 (0.0-0.012) X10*3/uL Nucleated RBC % (auto) 0.0 (0.0-0.2) /100WBC Sodium 139 (135-145) mmol/L Potassium 4.0 (3.3-5.1) mmol/L Chloride 104 (96-108) mmol/L Carbon Dioxide 27 (22-29) mmol/L Anion Gap 12 (12-20) BUN 17 H (9-16) mg/dL Creatinine 1.00 (0.5-1.4) mg/dL Estim Creat Clear Calc 121.0 Estimated GFR > 60 Random Glucose 98 (60-115) mg/dL Calcium 9.2 (8.4-10.2) mg/dL Magnesium 2.0 (1.6-2.6) mg/dL Total Bilirubin 0.6 (0.0-1.0) mg/dL AST 13 (5-37) U/L ALT 13 (0-40) U/L Alkaline Phosphatase 68 (39-117) U/L Troponin I High Sens 14.6 (<3.5-35.0) ng/L Total Protein 6.9 (6.5-8.0) g/dL Albumin 4.3 (3.5-5.0) g/dL COVID-19 (ALICE) (Negative) COVID-19 Clin Com 03/12/23 Range/Units 07:39 WBC (4.8-10.8) X10*3/uL RBC (4.60-5.80) X10*6/uL Hgb (14.0-18.0) g/dl Hct (42.0-52.0) % MCV (80.0-98.0) fL MCH (27.0-33.0) pg MCHC (31.0-36.0) g/dl RDW (11.0-16.0) % Plt Count (160-400) X10*3/uL MPV (9.4-12.4) fL Immature Gran % (Auto) (0.0-0.4) % Neut % (Auto) (45-73) % Lymph % (Auto) (20-40) % [facility] % (Auto) (2-11) % Eos % (Auto) (0-4) % Baso % (Auto) (0-2) % Lymph # (Auto) (1.2-4.9) X10*3/uL [facility] # (Auto) (0.1-1.2) X10*3/uL Eos # (Auto) (0.0-0.4) X10*3/uL Baso # (Auto) (0.0-0.2) X10*3/uL Abs Immat Gran (auto) (0.00-0.03) X10*3/uL Absolute Neuts (auto) (2.0-8.3) x10*3/uL Absolute Nucleated RBC (0.0-0.012) X10*3/uL Nucleated RBC % (auto) (0.0-0.2) /100WBC Sodium (135-145) mmol/L Potassium (3.3-5.1) mmol/L Chloride (96-108) mmol/L Carbon Dioxide (22-29) mmol/L Anion Gap (12-20) BUN (9-16) mg/dL Creatinine (0.5-1.4) mg/dL Estim Creat Clear Calc Estimated GFR Random Glucose (60-115) mg/dL Calcium (8.4-10.2) mg/dL Magnesium (1.6-2.6) mg/dL Total Bilirubin (0.0-1.0) mg/dL AST (5-37) U/L ALT (0-40) U/L Alkaline Phosphatase (39-117) U/L Troponin I High Sens (<3.5-35.0) ng/L Total Protein (6.5-8.0) g/dL Albumin (3.5-5.0) g/dL COVID-19 (ALICE) Negative (Negative) COVID-19 Clin Com See Note Independent Interpretation I performed an independent interpretation of an: EKG and Plain X-Ray Interpretation: Vent. Rate: 055 BPM ? ? Atrial Rate: 055 BPM P-R Int: 142 ms? QRS Dur: 090 ms QT Int: 402 ms ? ? ? P-R-T Axes: 013 042 011 degrees QTc Int: 384 ms ? Sinus bradycardia with sinus arrhythmia Otherwise normal ECG No previous ECGs available DD/ [id number] My interpretation is in agreement with the radiologist's impression of this imaging study. EXAMINATION: XR CHEST CLINICAL INFORMATION: Chest pain COMPARISON: Previous chest x-ray most recent December 2022 TECHNIQUE: 2 views of the chest were obtained. FINDINGS: No significant abnormality is noted involving the heart, lungs, mediastinum, bony thorax or soft tissues. XR/XR chest 2V IMPRESSION: Unremarkable examination. Dictated By: Grisel Addison MD Signed By: Electronically signed by Grisel Addison MD 03/12/23 0842 Discharge Plan Discharge Clinical Impression: Atypical chest pain, Gastroesophageal reflux disease Patient Disposition: Home, Self-Care Instructions: Chest Pain (DC), Gastroesophageal Reflux Disease (DC) Additional Instructions: Follow up with your primary care provider. Return to the emergency department immediately if your symptoms worsen or if you develop any dizziness, shortness of breath, difficulty breathing, chest pain, blurry vision, loss of vision, nausea, vomiting, abdominal pain, fever, chills, back pain, or any other complaints. Prescriptions: New omeprazole 40 mg capsule,delayed release(DR/EC) 40 mg PO DAILY Qty: 30 0RF No Action cephalexin 500 mg tablet 500 mg PO QID 7 Days Qty: 28 0RF ibuprofen 600 mg tablet 600 mg PO Q6H PRN (Reason: pain) Qty: 20 0RF oxycodone-acetaminophen [Percocet] 5-325 mg tablet 1 tab PO Q6H PRN (Reason: pain) Qty: 7 0RF metoclopramide HCl [Reglan] 10 mg tablet 10 mg PO Q6H PRN (Reason: nausea and vomiting) Qty: 14 0RF amoxicillin 500 mg tablet 500 mg PO Q12H Qty: 14 0RF benzonatate 100 mg capsule 100 mg PO TID PRN (Reason: cough) 7 Days Qty: 20 0RF benzonatate 200 mg capsule 200 mg PO TID PRN (Reason: cough) Qty: 20 0RF prednisone 20 mg tablet 40 mg PO DAILY Qty: 10 0RF amoxicillin-pot clavulanate 875-125 mg tablet 1 tab PO BID Qty: 20 0RF Referrals: [facility] [Primary Care Provider] - Stand Alone Forms: Work/School Release Interventions: ED Discharge Assessment Last Done: 03/12/23 09:14 Discharge Date/Time: 03/12/23 09:15 Print Language: Yemeni
--- NOTE | 2023-03-12 07:42 | PC.NURSE ---
pt alert and oriented, skin appropriate for ethnicity, respirations even and unlabored, ls clear, pt reports midsternal chest pain that has been going on for a few weeks on and off, sometimes worse after eating of bending over and moving around , ns on the monitor.
[2023-03-12 07:44] LABS: MANUAL DIFF FLAG NO
[2023-03-12 07:46] LABS: Basophils Absolute Auto 0.1 X10*3/uL (0.0-0.2); Basophils Percent Auto 0.7 % (0-2); Eosinophils Absolute Auto 0.7 X10*3/uL (0.0-0.4); Hematocrit 47.8 % (42.0-52.0); Hemoglobin 16.2 g/dl (14.0-18.0); Imm Gran Abs Auto 0.05 X10*3/uL (0.00-0.03); Imm Gran Pct Auto 0.6 % (0.0-0.4); Lymphocytes Percent Auto 23.4 % (20-40); Mean Corpuscular HGB Conc 33.9 g/dl (31.0-36.0); Mean Corpuscular Hemoglobin 29.9 pg (27.0-33.0); Mean Corpuscular Volume 88.4 fL (80.0-98.0); Mean Platelet Volume 10.6 fL (9.4-12.4); Monocytes Absolute Auto 0.5 X10*3/uL (0.1-1.2); Monocytes Percent Auto 6.1 % (2-11); Neutrophils Absolute Auto 5.1 x10*3/uL (2.0-8.3); Neutrophils Percent Auto 61.2 % (45-73); Platelet Count 249 X10*3/uL (160-400); Red Blood Count 5.41 X10*6/uL (4.60-5.80); Red Cell Distribution Width 11.9 % (11.0-16.0); White Blood Count 8.4 X10*3/uL (4.8-10.8)
[2023-03-12 07:58] LABS: COVID-19 Test Negative (Negative); IDNOW Serial# 08D9AD1C
[2023-03-12 08:02] LABS: Alanine Aminotransferase 13 U/L (0-40); Albumin Level 4.3 g/dL (3.5-5.0); Alkaline Phosphatase 68 U/L (39-117); Anion Gap 12 (12-20); Aspartate Amino Transferase 13 U/L (5-37); Bilirubin Total 0.6 mg/dL (0.0-1.0); Blood Urea Nitrogen 17 mg/dL (9-16); Calcium 9.2 mg/dL (8.4-10.2); Carbon Dioxide 27 mmol/L (22-29); Chloride 104 mmol/L (96-108); Estimated Glomerular Filt Rate > 60; Glucose Random 98 mg/dL (60-115); Sodium 139 mmol/L (135-145); Total Protein 6.9 g/dL (6.5-8.0)
[2023-03-12 08:09] LABS: Troponin-I High Sensitivity 14.6 ng/L (<3.5-35.0)
== END 2023-03-12 09:15 | disposition home or self-care (01) ==
PROVIDERS: Physician Assistant Medical; Emergency Provider Student in an Organized Health Care Education/Training Program
DX: R07.89 Other chest pain (principal); K21.9 Gastro-esophageal reflux disease without esophagitis; Z20.822 Contact with and (suspected) exposure to COVID-19; Z79.899 Other long term (current) drug therapy
CPT/HCPCS: 71046; 80053; 83735; 84484; 85025; 87635; 93005; 99283; 99285

== ENCOUNTER 2023-08-30 05:16 | Emergency (ER) | payer MEDICAID, SELFPAY ==
--- NOTE | ~2023-08-30 | XR_ITS ---
EXAMINATION: XR CHEST CLINICAL INFORMATION: Cough. COMPARISON: None available. TECHNIQUE: 2 views of the chest were obtained. FINDINGS: No significant abnormality is noted involving the heart, lungs, mediastinum, bony thorax or soft tissues. XR/XR chest 2V IMPRESSION: Unremarkable chest examination.
[2023-08-30 05:19] VITALS: BP 130/88; PULSE 73; RESP 16; TEMP 36.8; O2SAT 98; BMI 23.2
[2023-08-30 06:22] VITALS: BP 124/70; PULSE 58; RESP 15; TEMP 36.9; O2SAT 98
--- NOTE | 2023-08-30 06:45 | PC.NURSE ---
PT SAYS HE TESTED POSITIVE FOR COVID VIA HOME TEST ABOUT 1.5 WEEKS AGO, HAS BEEN SICK FOR ABOUT TWO WEEKS WITH ON AND OFF SYMPTOMS OF NAUSEA, HEADACHES, COUGH, BODY ACHES. PT STATES UNABLE TO EAT OR DRINK, NAUSEA WORSENS AFTER EATING. POOR WATER INTAKE. 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
[2023-08-30 06:47] VITALS: O2SAT 98
--- NOTE | 2023-08-30 07:10 | ED_ITS ---
HPI - URI/Sore Throat General Chief Complaint: Upper Respiratory Symptoms Stated Complaint: Nausea/Headache/Cough Time Seen by Provider: 08/30/23 07:06 Source: patient Mode of arrival: ambulatory Limitations: no limitations History of Present Illness HPI Narrative: 28 yo male with PMH of migraines he is not vaccinated against COVID he tells me he tested positive for COVID about 2 weeks ago but still has headaches, nausea and coughing. He is able to drink but he just isn't eating much. He takes cough and cold medications from his girlfriend. He is not on daily migraine medications. He notes that he has headaches that usually get worse while at work throughout the day. He has not had a fever in several days. MD elicited complaint: cough and other (headaches nausea. ) Pertinent past history: other (COVID + two weeks ago) Onset (ago): week(s) (2) Consistency: intermittent Severity: moderate Description of mucous: clear Able to tolerate fluids by mouth: Yes Exacerbating factors: exertion (tired at work) Relieving factors: nothing Context: other (recent COVID) Associated symptoms: headache, cough and nausea Treatments prior to arrival: none Related Data Previous Rx's Medication Instructions Recorded cephalexin 500 mg tablet 500 mg PO QID 7 days #28 tabs 12/13/20 ibuprofen 600 mg tablet 600 mg PO Q6H PRN pain #20 tabs 12/13/20 oxycodone-acetaminophen 5 mg-325 1 tab PO Q6H PRN pain #7 tabs 12/13/20 mg tablet (Percocet) amoxicillin 500 mg tablet 500 mg PO Q12H #14 tabs 08/30/21 benzonatate 100 mg capsule 100 mg PO TID PRN cough 1 week #20 01/30/22 caps metoclopramide HCl 10 mg tablet 10 mg PO Q6H PRN nausea and 10/11/22 (Reglan) vomiting #14 tabs amoxicillin 875 mg-potassium 1 tab PO BID #20 tabs 01/24/23 clavulanate 125 mg tablet benzonatate 200 mg capsule 200 mg PO TID PRN cough #20 caps 01/24/23 prednisone 20 mg tablet 40 mg (2 x 20 mg) PO DAILY #10 tabs 01/24/23 omeprazole 40 mg capsule,delayed 40 mg PO DAILY #30 caps 03/12/23 release ibuprofen 600 mg tablet 600 mg PO Q6H PRN pain #30 tabs 08/30/23 ondansetron 4 mg disintegrating 4 mg PO Q8H PRN nausea and 08/30/23 tablet vomiting #20 tabs sumatriptan succinate 50 mg tablet See Rx Instructions PO .COMPLEX 08/30/23 #10 tabs Allergies Allergy/AdvReac Type Severity Reaction Status Date / Time No Known Allergies Allergy Verified 03/12/23 07:15 Review of Systems 2 Review of Systems: Constitutional : No Fever, No Chills, No Fatigue ENT/Mouth : No sore throat, No Rhinorrhea Eyes: No Eye Pain, No Swelling, No Redness Cardiovascular : No Chest Pain, No SOB, No Dyspnea on Exertion Respiratory : pos Cough, No Sputum Gastrointestinal : pos Nausea, No Vomiting, No Diarrhea, No abdominal Pain Genitourinary : No Dysuria, No Urinary Frequency, No Hematuria, Musculoskeletal : No joint pain, No Myalgias, No Joint Swelling Skin : No Skin Lesions, No rash Neuro : No Weakness, No Numbness, No Dizziness, positive Headache Psych : No Anxiety/Panic, No Depression All other systems reviewed and are negative [facility] Past Medical History Attestation statement: The following information was validated with the patient. Source: old records reviewed Medical History Migraines Patient denies medical problems Social History Social History Unable to assess alcohol history related to: Unknown Alcohol intake: current Alcohol intake frequency: holidays/special occasions only Smoked in Last 30 Days: No Use of substances other than those prescribed or required for medical reasons: No Advance Directives: No Advance Directives Information Provided: Yes Physical Exam 2 Vital Signs: Vital Signs: Last Vital Signs Temp 98.4 F 08/30/23 06:22 Pulse 58 08/30/23 06:22 Resp 15 08/30/23 06:22 BP 124/70 08/30/23 06:22 Pulse Ox 98 08/30/23 06:47 O2 Del Method Room Air 08/30/23 06:47 BMI result Body Mass Index 23.2 Appearance: Alert. Oriented X3. No acute distress. Eyes: Pupils equal, round and reactive to light. ENT: Pharynx normal. Neck: Normal inspection. Neck supple. no meningeal signs CVS: Normal heart rate and rhythm. Pulses normal. Respiratory: No respiratory distress. Breath sounds normal. Abdomen: Soft and non-tender. Skin: Skin warm and dry. Normal skin color. Normal skin turgor. Extremities: No lower extremity edema. No calf ttp Neuro: Oriented X 3. No motor deficit. No sensory deficit. Medications Administered Generic Name Dose Route Start Last Admin Trade Name Freq PRN Reason Stop Dose Admin Sodium Chloride 1,000 mls @ 999 mls/hr 08/30/23 07:30 08/30/23 07:44 Ns IV 08/30/23 08:30 999 mls/hr .Q1H1M J LUIS Administration Discontinued Medications Generic Name Dose Route Start Last Admin Trade Name Freq PRN Reason Stop Dose Admin Ketorolac Tromethamine 15 mg 08/30/23 07:24 08/30/23 07:45 Ketorolac Tromethamine 15 Mg/Ml Vial IVPUSH 08/30/23 07:25 15 mg ONCE ONE Administration Ondansetron HCl 4 mg 08/30/23 07:24 08/30/23 07:45 Ondansetron Hcl 4 Mg/2 Ml Vial IVPUSH 08/30/23 07:25 4 mg ONCE ONE Administration Medical Decision Making Medical Decision Making [facility] Narrative: 28 yo male with PMH of migraines here with headaches, nausea and cough after COVID 2 weeks ago he has no fevers, normal neuro exam, not toxic no meningeal signs headaches wax and wane not consistent with SAH or venous thrombosis - he looks well clinically. I am going to order CXR for pneumonia, check basic labs, hydrate and treat symptoms - anticipate DC home with supportive medications. He is aware he needs to follow up in regards to his chronic headaches - these were present prior to COVID Differential Diagnosis Differential Diagnoses: The differential diagnosis associated with the presentation includes dehydration, migraine, viral syndrome not toxic, no fevers normal neuro exam and headache x 2 weeks not consistent with venous thrombosis doubt SAH waxing and waning gets worse throughout the day Admission/Observation Consideration of admission/observation: Escalation of care including admission/observation considered tolerating PO stable for DC not toxic, labs stable, feels better Lab Data [facility] Lab Attestation statement: I reviewed the patient's lab results. 08/30/23 07:37 08/30/23 07:37 Labs: Lab Results 08/30/23 Range/Units 07:37 WBC 9.8 (4.8-10.8) X10*3/uL RBC 5.53 (4.60-5.80) X10*6/uL Hgb 16.6 (14.0-18.0) g/dl Hct 48.9 (42.0-52.0) % MCV 88.4 (80.0-98.0) fL MCH 30.0 (27.0-33.0) pg MCHC 33.9 (31.0-36.0) g/dl RDW 11.9 (11.0-16.0) % Plt Count 273 (160-400) X10*3/uL MPV 10.5 (9.4-12.4) fL Immature Gran % (Auto) 0.6 H (0.0-0.4) % Neut % (Auto) 65.0 (45-73) % Lymph % (Auto) 19.2 L (20-40) % [place] % (Auto) 6.4 (2-11) % Eos % (Auto) 8.1 H (0-4) % Baso % (Auto) 0.7 (0-2) % Lymph # (Auto) 1.9 (1.2-4.9) X10*3/uL [place] # (Auto) 0.6 (0.1-1.2) X10*3/uL Eos # (Auto) 0.8 H (0.0-0.4) X10*3/uL Baso # (Auto) 0.1 (0.0-0.2) X10*3/uL Abs Immat Gran (auto) 0.06 H (0.00-0.03) X10*3/uL Absolute Neuts (auto) 6.4 (2.0-8.3) x10*3/uL Absolute Nucleated RBC 0.000 (0.0-0.012) X10*3/uL Nucleated RBC % (auto) 0.0 (0.0-0.2) /100WBC Independent Interpretation I performed an independent interpretation of an: Plain X-Ray (normal ) Radiology Impression Discussion of test interpretation with radiology: I have reviewed the radiologist's reading. External Record Review External record reviewed: Inpatient record Prescription Management I considered prescription management with: Other Discharge Plan Discharge Clinical Impression: Viral infection Headache, migraine Qualifiers: Migraine type: unspecified Status migrainosus presence: without status migrainosus Intractability: not intractable Qualified Code(s): G43.909 - Migraine, unspecified, not intractable, without status migrainosus Patient Disposition: Home, Self-Care Instructions: Migraine Headache (ED), Viral Syndrome (ED) Additional Instructions: a cough after COVID can last up to 4 to 6 weeks. return for fevers or difficulty breathing. for headaches take tylenol or motrin for pain. your xray and blood work was normal return for confusion, numbness, weakness, loss of vision or any other concerns. you need to follow up with your doctor about your chronic headaches. Prescriptions: New ondansetron 4 mg tablet,disintegrating 4 mg PO Q8H PRN (Reason: nausea and vomiting) Qty: 20 0RF ibuprofen 600 mg tablet 600 mg PO Q6H PRN (Reason: pain) Qty: 30 0RF sumatriptan succinate 50 mg tablet See Rx Instructions .ROUTE .COMPLEX Qty: 10 0RF Rx Instructions: take 1 tab at onset of headache; if no relief may repeat 1 tab after at least 2 hrs; max = 4 tabs/24 hr No Action cephalexin 500 mg tablet 500 mg PO QID 7 Days Qty: 28 0RF ibuprofen 600 mg tablet 600 mg PO Q6H PRN (Reason: pain) Qty: 20 0RF oxycodone-acetaminophen [Percocet] 5-325 mg tablet 1 tab PO Q6H PRN (Reason: pain) Qty: 7 0RF metoclopramide HCl [Reglan] 10 mg tablet 10 mg PO Q6H PRN (Reason: nausea and vomiting) Qty: 14 0RF amoxicillin 500 mg tablet 500 mg PO Q12H Qty: 14 0RF benzonatate 100 mg capsule 100 mg PO TID PRN (Reason: cough) 7 Days Qty: 20 0RF benzonatate 200 mg capsule 200 mg PO TID PRN (Reason: cough) Qty: 20 0RF prednisone 20 mg tablet 40 mg PO DAILY Qty: 10 0RF amoxicillin-pot clavulanate 875-125 mg tablet 1 tab PO BID Qty: 20 0RF omeprazole 40 mg capsule,delayed release(DR/EC) 40 mg PO DAILY Qty: 30 0RF Stand Alone Forms: Work/School Release
[2023-08-30 07:44] LABS: MANUAL DIFF FLAG NO
[2023-08-30] MEDS: 0.9 % Sodium Chloride 1,000 ML 999 ML IV (07:44)
[2023-08-30 07:45] LABS: Basophils Absolute Auto 0.1 X10*3/uL (0.0-0.2); Basophils Percent Auto 0.7 % (0-2); Eosinophils Absolute Auto 0.8 X10*3/uL (0.0-0.4); Eosinophils Percent Auto 8.1 % (0-4); Hematocrit 48.9 % (42.0-52.0); Hemoglobin 16.6 g/dl (14.0-18.0); Imm Gran Abs Auto 0.06 X10*3/uL (0.00-0.03); Imm Gran Pct Auto 0.6 % (0.0-0.4); Lymphocytes Absolute Auto 1.9 X10*3/uL (1.2-4.9); Lymphocytes Percent Auto 19.2 % (20-40); Mean Corpuscular HGB Conc 33.9 g/dl (31.0-36.0); Mean Corpuscular Volume 88.4 fL (80.0-98.0); Mean Platelet Volume 10.5 fL (9.4-12.4); Monocytes Absolute Auto 0.6 X10*3/uL (0.1-1.2); Monocytes Percent Auto 6.4 % (2-11); Neutrophils Absolute Auto 6.4 x10*3/uL (2.0-8.3); Platelet Count 273 X10*3/uL (160-400); Red Blood Count 5.53 X10*6/uL (4.60-5.80); Red Cell Distribution Width 11.9 % (11.0-16.0); White Blood Count 9.8 X10*3/uL (4.8-10.8)
[2023-08-30] MEDS: Ketorolac Tromethamine 15 MG/ML VIAL IVPUSH (07:45)
[2023-08-30] MEDS: ondansetron HCL 4 MG/2 ML VIAL IVPUSH (07:45)
--- NOTE | 2023-08-30 07:46 | PC.NURSE ---
IV established, labs obtained and sent. medicated per the MAR. off at xray
[2023-08-30 08:02] LABS: Anion Gap 10 (12-20); Blood Urea Nitrogen 10 mg/dL (9-16); Calcium 9.1 mg/dL (8.4-10.2); Carbon Dioxide 29 mmol/L (22-29); Chloride 105 mmol/L (96-108); Creatinine Clr Calc Pharmacy 153.6; Estimated Glomerular Filt Rate > 60; Glucose Random 91 mg/dL (60-115); Potassium 3.9 mmol/L (3.3-5.1); Sodium 140 mmol/L (135-145)
== END 2023-08-30 08:26 | disposition home or self-care (01) ==
PROVIDERS: Emergency Provider Emergency Medicine
DX: U07.1 COVID-19 (principal); G43.909 Migraine, unspecified, not intractable, without status migrainosus; R11.2 Nausea with vomiting, unspecified; R05.9 Cough, unspecified; Z79.899 Other long term (current) drug therapy
CPT/HCPCS: 36415; 71046; 80048; 85025; 96374; 96375; 99284; 99285; J1885; J2405

== ENCOUNTER 2023-12-12 09:05 | Outpatient (REF) | payer OTHER, SELFPAY ==
--- NOTE | ~2023-12-12 | XR_ITS ---
EXAMINATION: XR HAND, LEFT CLINICAL INFORMATION: Left hand pain COMPARISON: None available. TECHNIQUE: PA, lateral, and oblique views of the left hand. FINDINGS: Minimally displaced fracture at the base of the 5th metacarpal. No additional fracture or malalignment. No radiopaque foreign body. No priors for comparison. XR/XR hand LT min 3V IMPRESSION: Minimally displaced fracture at the base of the 5th metacarpal.
== END 2023-12-12 09:06 | disposition home or self-care (01) ==
LOC: HO.HOSX 09:05
PROVIDERS: Visit Provider Physician Assistant
DX: S62.347A Nondisplaced fracture of base of fifth metacarpal bone, left hand, initial encounter for closed fracture (principal)
CPT/HCPCS: 26600; 73130; 99202

== ENCOUNTER 2023-12-12 09:57 | Outpatient (AMB) | payer OTHER, MEDICAID, SELFPAY ==
[2023-12-12 10:09] VITALS: BMI 23.1
--- NOTE | 2023-12-12 10:09 | MHC.OFFVIS ---
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 States while stepping out of his truck, he tripped and put his hand out to break his fall, landing on his own hand. Seen at [facility] where xrays and taken and a brace was given. States he has pain with movement, swelling and mild, bruising. 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 He was seen at [facility] where x-rays were performed and he was placed in a brace. He currently states he has pain, swelling, and mild bruising in his finger which is aggravated with movement. He denies any wrist or arm pain. He works as a milk truck driver. COUNT INCLUDES THE [facility] Medical History Migraines Patient denies medical problems Social History (Updated 12/12/23 @ 10:16 by Rebekah Bear [facility]) Unable to assess alcohol history related to: Unknown Alcohol intake: current Alcohol intake frequency: holidays/special occasions only Current occupation: route delivery manager/ left hand Review of Systems Const All systems reviewed & are unremarkable except as noted in HPI and below Physical Exam Vital Signs: BMI result Body Mass Index 23.1 Const General: cooperative, healthy appearing, comfortable, no acute distress, well developed and alert Orientation/consciousness: patient oriented x3 HEENT Head: Yes normal to inspection, Yes normocephalic and Yes atraumatic Eyes General: appearance normal, both eyes and all related structures Resp Effort & Inspection: normal respiratory effort and able to speak in complete sentences Cardio Rate: regular rate Peripheral pulses: Peripheral pulses 2+ throughout GI Palpation (GI): Soft to palpation Skin Lesions: no lesions Rashes: no rashes Neuro General: patient oriented x3 Extrem Other: Left hand: Normal to inspection. No bruising or swelling. He has tenderness along base of 5th metacarpal. No scissoring or angulation of the digits. No tenderness along the scaphoid or distal radius. He has full ROM of wrist and hand. NVI. Office Procedures Casting/Splints 98648-Zjow/Wrist Cast Application Procedure code (CPT) selection complete Fracture Care Fracture Billing Code: Fracture Billing Code Results Reviewed Results Reviewed: X-rays of the left hand obtained in the office today show a subtle non displaced fracture at the base of 5th metacarpal. Assessment & Plan Assessment & Plan (1) Closed fracture of 5th metacarpal: Code(s): S62.308A - Unspecified fracture of other metacarpal bone, initial encounter for closed fracture Qualifiers: Encounter type: initial encounter Metacarpal location: base Fracture alignment: nondisplaced Laterality: left Qualified Code(s): S62.347A - Nondisplaced fracture of base of fifth metacarpal bone, left hand, initial encounter for closed fracture Plan He was placed in a short arm cast in the office today. He should avoid any type of lifting, pushing, pulling or carrying greater than a cellphone. 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 Orders: Orders XR hand LT min 3V Today M79.642 - Pain in left hand Patient Instructions: Scribed for Little George PA-C, by Gigi Esteves biomedical engineering technologist, on 12/12/2023 at 10:30 AM EST. I, Little George PA-C, have personally reviewed and agree with the information entered by the scribe. Coding Level of Care Code New Pt Level 3 (91620) Diagnoses Closed nondisplaced fracture of base of fifth metacarpal bone of left hand, initial encounter S62.347A Encounter type: initial encounter Metacarpal location: base Fracture alignment: nondisplaced Laterality: left CPT Codes Casting - CPT: 43954-Eqzn/Wrist Cast Application ([id number]) Fracture Care - Fracture Billing Code: Fracture Billing Code ([id number])
== END 2023-12-12 10:57 | disposition home or self-care (01) ==
PROVIDERS: Visit Provider Physician Assistant
DX: S62.347A Nondisplaced fracture of base of fifth metacarpal bone, left hand, initial encounter for closed fracture (principal)
CPT/HCPCS: 26600; 99204

== ENCOUNTER 2024-01-02 13:15 | Outpatient (AMB) | payer OTHER, MEDICAID, SELFPAY ==
[2024-01-02 13:42] VITALS: BMI 23.1
--- NOTE | 2024-01-02 13:42 | A.OFFVIS_ITS ---
Intake Vital Signs 01/02/24 13:42 Height 6 ft 2 in Weight 180 lb BMI 23.1 Intake Visit Reasons: ov-Left 5th metacarpal fracture Intake Note: Dewey 28 year old left hand dominant male presents today for a follow up of his left hand 5th MC injury from 12/02/23. Cast off and xrays updated. Patient reports he continues to have discomfort in his dorsal aspect of wrist. States numbness and tingling with certain hand positions. He remains out of work since injury. Allergies No Known Allergies Allergy (Verified 01/02/24 13:45) HPI ov-Left 5th metacarpal fracture HPI Details 28-year-old left hand dominant male who returns to the office today for a follow-up of left 5th metacarpal fracture, 12/02/23. He continues to have discomfort at the dorsal aspect of his wrist. He also c/o numbness and tingling with certain hand positions. He has no other concerns today. 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 [facility] Medical History Migraines Patient denies medical problems Social History Unable to assess alcohol history related to: Unknown Alcohol intake: current Alcohol intake frequency: holidays/special occasions only Current occupation: service delivery manager/ left hand Review of Systems Const All systems reviewed & are unremarkable except as noted in HPI and below Physical Exam Vital Signs: BMI result Body Mass Index 23.1 Const General: cooperative, healthy appearing, comfortable, no acute distress, well developed and alert Orientation/consciousness: patient oriented x3 HEENT Head: Yes normal to inspection, Yes normocephalic and Yes atraumatic Eyes General: appearance normal, both eyes and all related structures Resp Effort & Inspection: normal respiratory effort and able to speak in complete sentences Cardio Rate: regular rate Peripheral pulses: Peripheral pulses 2+ throughout GI Palpation (GI): Soft to palpation Skin Lesions: no lesions Rashes: no rashes Neuro General: patient oriented x3 Extrem Other: Left hand: Normal to inspection. No bruising or swelling. He has tenderness along base of 5th metacarpal. No scissoring or angulation of the digits. No tenderness along the scaphoid or distal radius. He has full ROM of wrist and hand. NVI. Results Reviewed Results Reviewed: X-rays of the left hand obtained in the office today show a subtle non displaced fracture at the base of 5th metacarpal. with routine healing Assessment & Plan Assessment & Plan (1) Closed fracture of 5th metacarpal: Code(s): S62.308A - Unspecified fracture of other metacarpal bone, initial encounter for closed fracture Qualifiers: Encounter type: subsequent encounter Fracture alignment: nondisplaced Laterality: left Metacarpal location: base Fracture healing: with routine healing Qualified Code(s): S62.347D - Nondisplaced fracture of base of fifth metacarpal bone, left hand, subsequent encounter for fracture with routine healing Plan He was fit for a removable Velcro wrist splint in the office today which he will wear with activities. He will avoid lifting more than a cellphone and see me back in 4 weeks with new x-rays, sooner if needed. Orders: Orders XR hand LT min 3V Today M79.642 - Pain in left hand Patient Instructions: Scribed for Little George PA-C, by Gigi Esteves medical staffing coordinator, on 01/02/2024 at 2:00 PM EST. I, Little George PA-C, have personally reviewed and agree with the information entered by the scribe. Coding Level of Care Code Global (91915) Diagnoses Closed nondisplaced fracture of base of fifth metacarpal bone of left hand with routine healing, subsequent encounter S62.347D Encounter type: subsequent encounter Fracture alignment: nondisplaced Laterality: left Metacarpal location: base Fracture healing: with routine healing
== END 2024-01-02 14:18 | disposition home or self-care (01) ==
PROVIDERS: Visit Provider Physician Assistant
DX: S62.347D Nondisplaced fracture of base of fifth metacarpal bone, left hand, subsequent encounter for fracture with routine healing (principal)
CPT/HCPCS: 99024

== ENCOUNTER 2024-01-02 15:20 | Outpatient (REF) | payer OTHER, MEDICAID, SELFPAY ==
--- NOTE | ~2024-01-02 | XR_ITS ---
EXAMINATION: XR HAND, LEFT CLINICAL INFORMATION: Pain in left hand. COMPARISON: 12/12/2023. TECHNIQUE: PA, lateral, and oblique views of the left hand. FINDINGS: Redemonstration of minimally displaced fracture at the base of the fifth metacarpal. Remainder of bony structures appear intact. Fracture line is still visible. XR/XR hand LT min 3V IMPRESSION: Redemonstration of minimally displaced fracture at the base of the fifth metacarpal.
== END 2024-01-02 15:21 | disposition home or self-care (01) ==
LOC: HO.HOSX 15:20
PROVIDERS: Visit Provider Physician Assistant
DX: S62.347D Nondisplaced fracture of base of fifth metacarpal bone, left hand, subsequent encounter for fracture with routine healing (principal)
CPT/HCPCS: 73130; 99212

== ENCOUNTER 2024-01-30 06:34 | Outpatient (REF) | payer OTHER, MEDICAID, SELFPAY ==
--- NOTE | ~2024-01-30 | XR_ITS ---
EXAMINATION: XR HAND, LEFT CLINICAL INFORMATION: Pain COMPARISON: None TECHNIQUE: 3 views of the hand FINDINGS: Again seen is a healing fracture at the base of the fifth metacarpal with bridging bony callus formation in similar alignment. Joint spaces are maintained. No cortical erosion. Soft tissues are unremarkable. XR/XR hand LT min 3V IMPRESSION: Again seen is a healing fracture at the base of the fifth metacarpal with bridging bony callus formation in similar alignment.
== END 2024-01-30 06:35 | disposition home or self-care (01) ==
LOC: HO.HOSX 06:34
PROVIDERS: Visit Provider Physician Assistant
DX: S62.347D Nondisplaced fracture of base of fifth metacarpal bone, left hand, subsequent encounter for fracture with routine healing (principal)
CPT/HCPCS: 73130; 99212

== ENCOUNTER 2024-01-30 10:30 | Outpatient (AMB) | payer OTHER, MEDICAID, SELFPAY ==
--- NOTE | 2024-01-30 10:38 | MHC.OFFVIS ---
Intake Vital Signs 01/30/24 10:41 Height 6 ft 2 in Weight 180 lb BMI 23.1 Intake Visit Reasons: OV-Left 5th MC FX Intake Note: Dewey 28 year old left hand dominant male presents today for a follow up of his left hand 5th MC injury from 12/02/23. Patient reports that he continues to have discomfort and stiffness. Limited in his ROM. He continues to wear velcro brace as instructed. Allergies No Known Allergies Allergy (Verified 01/30/24 10:42) HPI OV-Left 5th MC FX HPI Details 28-year-old left hand dominant male who returns to the office today for a follow-up of left 5th metacarpal fracture, 12/02/23. He continues to have limited ROM, discomfort and stiffness in his finger. He has been using his Velcro brace as instructed. He has no other concerns today. [facility] Medical History Migraines Patient denies medical problems Social History Unable to assess alcohol history related to: Unknown Alcohol intake: current Alcohol intake frequency: holidays/special occasions only Current occupation: delivery driver/supervisor/ left hand Review of Systems Const All systems reviewed & are unremarkable except as noted in HPI and below Physical Exam Vital Signs: BMI result Body Mass Index 23.1 Const General: cooperative, healthy appearing, comfortable, no acute distress, well developed and alert Orientation/consciousness: patient oriented x3 HEENT Head: Yes normal to inspection, Yes normocephalic and Yes atraumatic Eyes General: appearance normal, both eyes and all related structures Resp Effort & Inspection: normal respiratory effort and able to speak in complete sentences Cardio Rate: regular rate Peripheral pulses: Peripheral pulses 2+ throughout GI Palpation (GI): Soft to palpation Skin Lesions: no lesions Rashes: no rashes Neuro General: patient oriented x3 Extrem Other: Left hand: Normal to inspection. No bruising or swelling. He has no tenderness along base of 5th metacarpal. No scissoring or angulation of the digits. No tenderness along the scaphoid or distal radius. He has full ROM of wrist and hand. NVI. Results Reviewed Results Reviewed: X-rays of the left hand obtained in the office today show a subtle non displaced fracture at the base of 5th metacarpal. with routine healing Assessment & Plan Assessment & Plan (1) Closed fracture of 5th metacarpal: Code(s): S62.308A - Unspecified fracture of other metacarpal bone, initial encounter for closed fracture Qualifiers: Encounter type: subsequent encounter Fracture alignment: nondisplaced Fracture healing: with routine healing Laterality: left Metacarpal location: base Qualified Code(s): S62.347D - Nondisplaced fracture of base of fifth metacarpal bone, left hand, subsequent encounter for fracture with routine healing Plan He will increase activity as tolerated. I did ask him to use caution with any type of impact or contact activities for the 3 weeks. He can use the splint where he needs to lift. He can discontinue the brace in all activities and work on ROM and airborne operations superintendent strengthening. He will return to work on February 02 and follow-up if symptoms arise. Orders: Orders XR hand LT min 3V Today M79.642 - Pain in left hand Patient Instructions: Scribed for Little George PA-C, by Gigi Esteves medical detailist, on 01/30/2024 at 10:30 AM EST. I, Little George PA-C, have personally reviewed and agree with the information entered by the scribe. Coding Level of Care Code Global (89629) Diagnoses Closed nondisplaced fracture of base of fifth metacarpal bone of left hand with routine healing, subsequent encounter S62.347D Encounter type: subsequent encounter Fracture alignment: nondisplaced Fracture healing: with routine healing Laterality: left Metacarpal location: base
[2024-01-30 10:41] VITALS: BMI 23.1
== END 2024-01-30 10:59 | disposition home or self-care (01) ==
LOC: HO.HOS 10:30
PROVIDERS: Visit Provider Physician Assistant
DX: S62.347D Nondisplaced fracture of base of fifth metacarpal bone, left hand, subsequent encounter for fracture with routine healing (principal)
CPT/HCPCS: 99024

== ENCOUNTER 2024-04-07 07:32 | Emergency (ER) | payer MEDICAID, SELFPAY ==
[2024-04-07 07:35] VITALS: BP 132/70; PULSE 109; RESP 18; TEMP 37.6; O2SAT 95; BMI 23.8
[2024-04-07 08:08] LABS: COVID-19 Test Negative (Negative); IDNOW Serial# 08D9AD1C; IDNOW Serial# 152EDE1D; IDNOW Serial# 9DB6401D; Influenza A Negative (Negative); Influenza B2 Negative (Negative)
[2024-04-07 08:09] LABS: Strep A Nucleic Acid Positive (Negative)
--- NOTE | 2024-04-07 09:31 | ED.GENADULT ---
HPI - General Adult General Chief complaint: Upper Respiratory Symptoms Stated complaint: body pain, throat pain, headache Time Seen by Provider: 04/07/24 09:13 Source: patient Mode of arrival: ambulatory Limitations: no limitations History of Present Illness ED Provider: Garry Cavazos PA-C HPI narrative: 28 yold male with no pmh presents to the ED for soar throat, Headache, body aches, and chills since yesterday. Patietn denies any chest pain, shortness of breath, rash, drooling, change in voice, or neck swelling. Related Data Previous Rx's ?Medication ?Instructions ?Recorded ibuprofen 600 mg tablet 600 mg PO Q6H PRN pain #30 tabs 08/30/23 amoxicillin 875 mg-potassium 1 tab PO Q12H 10 days #20 tabs 04/07/24 clavulanate 125 mg tablet naproxen 500 mg tablet 500 mg PO BID PRN pain 7 days #14 04/07/24 tabs Allergies Allergy/AdvReac Type Severity Reaction Status Date / Time No Known Allergies Allergy Verified 04/07/24 07:38 Review of Systems Review of Systems: sore throat and headache Yes all other systems are reviewed and are negative [facility] Past Medical History Medical History Migraines Patient denies medical problems Social History Social History Unable to assess alcohol history related to: Unknown Alcohol intake: current Alcohol intake frequency: holidays/special occasions only Advance Directives: No Advance Directives Information Provided: Yes Current occupation: delivery coordinator/ left hand Physical Exam ED Vital Signs: Vital Signs - 24 hr 04/07/24 07:35 04/07/24 10:41 Temperature 99.7 F 99.7 F Pulse Rate 109 H 109 H Respiratory Rate 18 18 Blood Pressure 132/70 132/70 Pulse Oximetry 95 95 Oxygen Delivery Method Room Air BMI result Body Mass Index 23.8 Const General: cooperative, healthy appearing, comfortable, no acute distress, well developed, alert and awake Orientation/consciousness: oriented to person, oriented to place, oriented to time and patient oriented x3 HENMT Head: Yes normal to inspection, Yes No palpable skull fracture present, Yes normocephalic and Yes atraumatic Ears: hearing grossly normal bilaterally, external ears normal, TM's normal bilaterally, TM normal on the right, TM normal on the left, EAC's normal, mastoids normal and no periauricular adenopathy Throat: Yes posterior oropharynx normal, Yes tonsils normal and Yes uvula midline Eyes General: appearance normal, both eyes and all related structures Neck Neck: Yes normal visual inspection, Yes full ROM, Yes no lymphadenopathy, Yes no meningeal signs, Yes trachea midline, Yes supple, No anterior neck swelling and No tender Chest Chest palpation & inspection: normal inspection of the chest and normal palpation of entire chest wall Resp Effort & Inspection: normal respiratory effort and able to speak in complete sentences Auscultation: clear to auscultation bilaterally Cardio Jugular venous distension: no JVD Heart sounds: S1 normal heart sound present and S2 normal heart sound present GI Inspection: Yes normal to inspection Palpation (GI): Soft to palpation, not firm, nontender, no guarding and not rigid General: No CVA tenderness and Yes no CVA tenderness Back/Spine/Pelvis Back: no CVA tenderness, No CVA tenderness and No back tenderness Skin General skin exam: no rashes or lesions noted, elasticity normal and turgor normal Neuro General: oriented to person, oriented to place, oriented to time, patient oriented x3, gait normal, tone normal, moves all extremities, Normal light touch and pain sensation, no meningeal signs, no focal motor deficits, CN's II-XI intact bilaterally and normal sensation to monofilament Extrem General: Yes normal to inspection, Yes full ROM and Yes capillary refill normal Psych Appearance: grossly normal, well kempt and not disheveled Medical Decision Making Medical Decision Making MDM Narrative: 28-year-old male no past medical history presents ED for sore throat headache and chills. Patient well-appearing. Patient not in any distress. Patient tolerate liquid. Strep positive. COVID influenza negative. Patient explained worrisome signs and informed to return to the ED immediately. Not suspecting peritonsillar abscess, Sinan's angina, retropharyngeal abscess, or epiglottitis Differential Diagnosis Differential Diagnoses: The differential diagnosis associated with the presentation includes ( strep, mono, COVID, influenza) Admission/Observation Consideration of admission/observation: Escalation of care including admission/observation considered Lab Data Labs: Lab Results 04/07/24 Range/Units 07:44 COVID-19 (ALICE) Negative (Negative) COVID-19 Clin Com See Note Influenza Type A (EMELINA) Negative (Negative) Influenza Type B (EMELINA) Negative (Negative) Influenza A & B Note See Note S. pyogenes GrpA EMELINA Positive A (Negative) Independent Historian Clinical information obtained from an independent historian. History obtained from or confirmed by: Other ( patient) External Record Review External record reviewed: Other (prior visits) Prescription Management I considered prescription management with: Antibiotic Discharge Plan Discharge Clinical Impression: Strep throat Patient Disposition: Home, Self-Care Instructions: Strep Throat (ED) Additional Instructions: recommend follow-up with primary care provider. return to the ED immediately for any drooling, change in voice, inability tolerate solid food /liquid, intractable fever, chills, neck swelling, chest pain, shortness of breath, or any other concerning symptoms. Prescriptions: New amoxicillin-pot clavulanate 875-125 mg tablet 1 tab PO Q12H 10 Days Qty: 20 0RF naproxen 500 mg tablet 500 mg PO BID PRN (Reason: pain) 7 Days Qty: 14 0RF No Action ibuprofen 600 mg tablet 600 mg PO Q6H PRN (Reason: pain) Qty: 30 0RF Stand Alone Forms: Work/School Release Interventions: ED Discharge Assessment Last Done: 04/07/24 10:41 Discharge Date/Time: 04/07/24 10:41 Print Language: Lithuanian
[2024-04-07 10:41] VITALS: BP 132/70; PULSE 109; RESP 18; TEMP 37.6; O2SAT 95
== END 2024-04-07 10:41 | disposition home or self-care (01) ==
PROVIDERS: Emergency Provider Emergency Medicine
DX: J02.0 Streptococcal pharyngitis (principal); M79.10 Myalgia, unspecified site; R51.9 Headache, unspecified; Z79.899 Other long term (current) drug therapy; Z11.52 Encounter for screening for COVID-19
CPT/HCPCS: 87502; 87635; 87651; 99282; 99283

== ENCOUNTER 2024-05-12 15:44 | Outpatient (REF) | payer MEDICAID, SELFPAY ==
[2024-05-12 17:24] LABS: MANUAL DIFF FLAG NO
[2024-05-12 17:31] LABS: Appearance Urine Clear; Color Urine Yellow; Glucose Urine UA Negative (Negative); Leukocyte Esterase Urine Negative (Negative); Nitrite Urine Negative (Negative); Specific Gravity - Urine 1.015 (1.005-1.025); Urine Blood Negative (Negative); Urine Ketones Negative (Negative); Urine Protein Negative (Neg-Trace)
[2024-05-12 17:36] LABS: Bacteria Urine None Seen (None Seen); Hyaline Casts Urine 0-2 /LPF (0-2); RBC Urine 0-2 /HPF (0-2); Squamous Epithelial Cell Urine 0-2 /HPF (0-2); WBC Urine 0-5 /HPF (0-5)
[2024-05-12 17:40] LABS: Basophils Absolute Auto 0.1 X10*3/uL (0.0-0.2); Basophils Percent Auto 0.6 % (0-2); Eosinophils Absolute Auto 0.3 X10*3/uL (0.0-0.4); Eosinophils Percent Auto 2.1 % (0-4); Hematocrit 47.1 % (42.0-52.0); Hemoglobin 16.1 g/dl (14.0-18.0); Imm Gran Abs Auto 0.36 X10*3/uL (0.00-0.03); Imm Gran Pct Auto 2.3 % (0.0-0.4); Lymphocytes Absolute Auto 2.4 X10*3/uL (1.2-4.9); Lymphocytes Percent Auto 15.1 % (20-40); Mean Corpuscular HGB Conc 34.2 g/dl (31.0-36.0); Mean Corpuscular Hemoglobin 30.8 pg (27.0-33.0); Mean Corpuscular Volume 90.1 fL (80.0-98.0); Monocytes Absolute Auto 0.9 X10*3/uL (0.1-1.2); Monocytes Percent Auto 5.8 % (2-11); Neutrophils Absolute Auto 11.5 x10*3/uL (2.0-8.3); Neutrophils Percent Auto 74.1 % (45-73); Platelet Count 311 X10*3/uL (160-400); Red Blood Count 5.23 X10*6/uL (4.60-5.80); Red Cell Distribution Width 12.2 % (11.0-16.0); White Blood Count 15.5 X10*3/uL (4.8-10.8)
[2024-05-12 17:54] LABS: Alanine Aminotransferase 22 U/L (0-40); Albumin Level 4.7 g/dL (3.5-5.0); Alkaline Phosphatase 84 U/L (39-117); Anion Gap 14 (12-20); Aspartate Amino Transferase 20 U/L (5-37); Bilirubin Total 0.5 mg/dL (0.0-1.0); Blood Urea Nitrogen 8 mg/dL (9-16); Calcium 9.5 mg/dL (8.4-10.2); Carbon Dioxide 25 mmol/L (22-29); Chloride 103 mmol/L (96-108); Estimated Glomerular Filt Rate > 60; Glucose Random 77 mg/dL (60-115); Potassium 3.8 mmol/L (3.3-5.1); Sodium 138 mmol/L (135-145); Total Protein 7.9 g/dL (6.5-8.0)
[2024-05-12 18:10] LABS: TSH reflex Free T4 1.55 uIU/mL (0.32-4.0)
[2024-05-13 04:00] LABS: Syphilis Screen Nonreactive (Nonreactive)
[2024-05-13 04:19] LABS: HBS Num1 13.83 mIU/mL (0-7.99); HBc Num1 0.07 S/CO (0.00-0.79); HBsAGNum1 0.31 S/CO (0.00-0.99); HIV AB/AG Nonreactive (Nonreactive); HIV Num 1 0.05 S/CO (0.00-0.99); Hepatitis B Core Antibody Nonreactive (Nonreactive); Hepatitis B Surface Antigen Negative (Negative); ~HepC Num1 0.08 S/CO (0.00-0.79); ~Hepatitis B Surface Antibody REACTIVE (Nonreactive); ~Hepatitis C Antibody Nonreactive (Nonreactive)
[2024-05-13 04:30] LABS: Hepatitis A Antibody IgG REACTIVE (Nonreactive); ~Hepatitis A Antibody IgG 9.99 S/CO (0.00-0.99)
[2024-05-13 05:50] LABS: CT PCR NOT DETECTED (Not Detect.); NG PCR NOT DETECTED (Not Detect.)
== END 2024-05-12 15:45 | disposition home or self-care (01) ==
LOC: HO.HHCL 15:44
PROVIDERS: Visit Provider Family Medicine
DX: R10.84 Generalized abdominal pain (principal); R19.7 Diarrhea, unspecified; R35.0 Frequency of micturition; Z11.3 Encounter for screening for infections with a predominantly sexual mode of transmission
CPT/HCPCS: 36415; 80053; 81001; 84443; 85025; 86704; 86706; 86708; 86780; 86803; 87340; 87389; 87491; 87591

== ENCOUNTER 2025-03-16 06:03 | Emergency (ER) | payer MEDICAID, SELFPAY ==
--- NOTE | ~2025-03-16 | XR_ITS ---
CLINICAL HISTORY: cough Exam: PA and lateral views of the chest. Comparison: August 30, 2023. Findings: Lungs are well inflated. Cardiac silhouette is within normal limits. Mild left perihilar bronchial wall thickening. Lungs are otherwise clear. No pleural effusion or pneumothorax. Impression: Left perihilar bronchitis. This document has been electronically signed by: Augustin Mckinley MD on 03/16/2025 06:51:26
[2025-03-16 06:06] VITALS: BP 112/69; PULSE 82; RESP 20; TEMP 37.1; O2SAT 96; BMI 25.0
[2025-03-16 06:27] LABS: IDNOW Serial# 58CA691E; Strep A Nucleic Acid Negative (Negative)
[2025-03-16 06:44] VITALS: BP 122/84; PULSE 65; RESP 17; TEMP 36.7; O2SAT 96
[2025-03-16 06:46] VITALS: O2SAT 96
--- OUTSIDE RECORDS SUMMARY | 2025-03-16 06:51 | XMS_ITS | Encounter Summary ---
Author Organization [employer] Address [address] [facility] 7[address] [place] [address] Care Team Providers Care Process Operator Name Role Phone Dee Santiago MD Primary Care Pro vider Reason for Visit * Reason Comments Med Change Request Encounter Details Date Type Department Care Team ([facility] Contact Info) Description 03/27/2024 Refill [facility] [address] [place], [place] [phone] Belinda Stovall NP [address] [place] [address] Social History Tobacco Use Types Packs/Day Years Used Date Smoking Tobacco: Never Passive Smoke Exposure: Never Smokeless Tobacco: Never Depression Answer Date Recorded Patient Health Questionnaire-9 Score 0 03/27/2024 Patient Health Questionnaire-9 Score 0 03/27/2024 Last PHQ-9: Questionnaire Data Not on file 0 03/27/2024 Housing Stability Answer Date Recorded What is your housing situation today? I have esteban billy 03/27/[address] you li ve. Do you have problems with any of the following? None of the above 03/27/2024 Food Insecurity Answer Date Recorded Within the past 12 months, y ou worried that your food would run out before you got money to buy more: Never True 03/27/2024 Within the past 12 months,th e food you bought just didn't last and you didn't have enough money to get more: Never True Transportation Answer Date Recorded In the past 12 months, has l ack of transportation kept you from medical appts, meetings, work or from getting things needed for daily living? No 03/27/2024 Utilities Answer Date Recorded In the past 12 months, has t he electric, gas, oil or water company threatened to shut off services in your home? No 03/27/2024 Depression Answer Date Recorded Patient Health Questionnaire-2 Score 0 03/27/2024 Sex and Gender Information Value Date Recorded Sex Assigned at Male 08/27/2022 10:14 AM EDT Legal Sex Male 10:14 AM EDT Gender Identity Male 08/27/2022 10:14 AM EDT Sexual Orientation Straight 08/27/2022 10 :14 AM EDT documented as of this encounter Functional Status * Over the past 2 weeks, how often have you been bothered by any of the following problems? Question Answer Date of Assessment Author Patient Health Questionnaire-2 Score 0 02/27 11:19 AM John Calle MA * Over the last 2 weeks, how often have you been bothered by any of the following problems? Question Answer Date of Assessment Author Feeling nervous, anxious, or on edge 0 02/27 11:19 AM John Calle MA Not being able to stop or co ntrol worrying 0 03/27/2024 11:19 AM John Calle M A Worrying too much about diff erent things 0 03/27/2024 11:19 AM John Calle M A Trouble relaxing 0 03/27/2024 11:19 AM John Calle MA Being so restless that it is hard to sit still 0 03/27/2024 11:19 AM John Calle M A Becoming easily annoyed or irritable 0 02/27 11:19 AM John Calle MA Feeling afraid as if somethi ng awful might happen 0 03/27/2024 11:19 AM John Calle M A LUDA-7 Total Score 0 03/27/2024 11:19 AM John Calle MA * Over the past 2 weeks, how often have you been bothered by any of the following problems? Question Answer Date of Assessment Author Little interest or pleasure in doing things Not at all 03/27/2024 11:19 AM John Calle M A Feeling down, depressed, or hopeless Not at all 03/27/2024 11:19 AM EDT John Chang M A Trouble falling or staying asleep, or sleeping too much Not at all 03/27/2024 11:19 AM EDT John Chang MA Feeling tired or having traci le energy Not at all 03/27/2024 11:19 AM EDT John Chang M A Poor appetite or overeating Not at all 03/27/2024 11 :19 AM EDT John Chang MA Feeling bad about yourself - or that you are a failure or have let yourself or your family down Not at all 03/27/2024 11:19 AM EDT John Arguello MA Trouble concentrating on thi ngs, such as reading the newspaper or watching television Not at all 03/27/2024 11:19 AM SPENCERT John Chang M A Moving or speaking so slowly that other people could have noticed? Or the opposite - being so fidgety or restless that you have been moving around a lot more than usual. Not at all 03/27/2024 11:19 AM John Calle M A Thoughts that you would be better off or hurting yourself in some way Not at all 03/27/2024 11:19 AM EDT John Chang MA Patient Health Questionnaire -9 Score 0 03/27/2024 11:19 AM EDT John Chang M A documented as of this encounter Miscellaneous Notes * Telephone Encounter - Geena Wagner RN - 03/30/2024 1:49 PM EDT Pt sent new Rx to another pharmacy documented in this encounter Plan of Treatment Not on file documented as of this encounter Visit Diagnoses Not on filedocumented in this encounter Additional Health Concerns Assessment Noted Time PHQ-9 Depression Total Score: 0 03/27/20 24 11:19 AM EDT documented as of this encounter Care Teams Process Operator Relationship Specialty Start Date End Date Dee Santiago MD [address] [place] [phone] PCP - General Internal Medicine 05/01/23 documented as of this encounter
--- OUTSIDE RECORDS SUMMARY | 2025-03-16 06:51 | XMS_ITS | Clinical Summary ---
Author Organization [address] [facility] Address [address] [place] [address] Phone Care Team Providers Care Sheet Combining Operator Name Role Phone Yarely Vieyra MD Primary Care Provider [phone] Social History Tobacco Use Types Packs/Day Years Used Date Smoking Tobacco: Never Assessed Sex and Gender Information Value Date Recorded Sex Assigned at Not on file Legal Sex Male 8:30 AM EDT Gender Identity Not on file Sexual Orientation Not on file Plan of Treatment Upcoming Encounters Date Type Department Care Team ([facility] Contact Info) Description 04/12/2025 9:00 AM EDT Consult Orthopedic Surgery - [facility] [address] [id number] Dov Lemos, DPM [address] [address] Health Maintenance Due Date Last Done Comments DTaP,Tdap,and Td Vaccines (1 - Tdap) 2014 Hepatitis B Vaccines (1 of 3 - 19+ 3-dose series) 2014 COVID-19 Vaccine ( - 2023-2 5 season) 2024 Depression Screening 02/25/2025 HIV Screening 02/25/2025 Hepatitis C Screening 02/25/2025 Social Influencers of Health Screening 02/25/2025 Influenza Vaccine (Season Ended) 2025 HIB Vaccines Aged Out No longer eligi ble based on patient's age to complete this topic HPV Vaccines Aged Out No longer eligi ble based on patient's age to complete this topic Hepatitis A Vaccines Aged Out No long er eligible based on patient's age to complete this topic IPV Vaccines Aged Out No longer eligi ble based on patient's age to complete this topic MMR Vaccines Aged Out No longer eligi ble based on patient's age to complete this topic Meningococcal ACWY Vaccine Aged Out N o longer eligible based on patient's age to complete this topic Meningococcal B Vaccine Aged Out No l onger eligible based on patient's age to complete this topic Pneumococcal Vaccine: Pediat rics (0 to 5 Years) and At-Risk Patients (6 to 64 Years) Aged Out No longer eligible b ased on patient's age to complete this topic RSV Immunization Patients Un caroline 20 months Aged Out No longer eligible b ased on patient's age to complete this topic Varicella Vaccines Aged Out No longer eligible based on patient's age to complete this topic Insurance MEDICAID - [place] Care Teams Sheet Combining Operator Relationship Specialty Start Date End Date Yarely Vieyra MD [address] [place] [address] PCP - General Coordinate Measuring Machine Operator 02/25/25
--- OUTSIDE RECORDS SUMMARY | 2025-03-16 06:51 | XMS_ITS | Clinical Summary ---
Author Organization [employer] Address [address] [facility] 7[address] [place] [address] Care Team Providers Care Food Technician Name Role Phone Dee Santiago MD Primary Care Pro vider Allergies No known active allergies Medications Blood Pressure Monitoring (Blood Pressure Cuff) misc 1 Units if needed each day (use daily as needed for bp measurement). 1 each 1 4 Active Blood Pressure Monitoring (Blood Pressure Kit) kit 1 Device Once per day. 1 kit 4 Active amoxicillin-cl avulanate (Augmentin) 875-125 MG tablet TOME 1 TABLETA POR V A ORAL CADA 12 HORAS POR 10 D 4 02/23/20 25 Discontinue d(Therapy completed) cephalexin (Keflex) 750 MG capsuleIndicat ions:Ingrown toenail of right foot with infection Take 1 capsule (750 mg) by mouth 4 times daily for 7 days. 28 capsule 5 03/01/20 25 mupirocin (Bactroban) 2 % ointmentIndica tions:Ingrown toenail of right foot with infection Apply topically 3 times daily for 10 days. 22 g 5 03/04/20 25 Active Problems Problem Noted Date Diagnosed Date Ingrown toenail of right foot with infection Assessment & Plan (02/24/2025 4:33 PM EDT): Temporize infections with warm water/Epsom salt soaks, application of mupirocin after soak Keflex QID x 7 days for paronychia Stay off affected foot as much as possible Stat referral to podiatry for removal with cautery/destruction of nail bed Note to stay out of work for 10 days Perioral dermatitis 03/27/2024 Assessment & Plan (03/28/2024 4:38 PM EDT): No visible eruption, mild diffuse erythema noted in oral mucosa, pt reports he recently changed toothpaste, suggested trial of changing back Elevated blood pressure reading 03/27/2024 Assessment & Plan (03/28/2024 4:37 PM EDT): Encouraged pt to reduce redbull, follow up with pcp for repeat bp check in 4 weeks sooner prn Acne vulgaris 03/20/2022 Anxiety 08/08/2015 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 Strabismus 08/14/2013 Migraine 08/13/2012 Encounters Date Type Department Care Team Description 02/22/2025 3:40 PM EDT Office Visit [facility] [address] [place] [phone] Yarely Vieyra MD Ingrown toenail of right foot with infection (Primary Dx) 01/19/2025 Telephone [facility] [address] [place], [place] [phone] Dee Santiago MD Nurse Triage from Last 3 Months Immunizations Immunization Administration Dates Next Due DTaP 1999, 7,05/07/1996,02/10,1995 HPV, Quadrivalent 08/14/2013,08/13/2012 Hep A, ped/adol, 2 dose 08/14/2013,10/03/2010 Hep B, Adolescent or Pediatric 02/11/1996,1994,1995 Hep B, adult 05/13/2018,04/15/2018 Hib ([facility]) 11/09/1996, 6,02/11/1996,11/12 IPV 1999, 6,02/11/1996,11/12 Influenza injectable quadriv alent IIV4 with preservative 08/27/2017 Influenza injectable quadriv alent preservative free 12/10/2016 Influenza live intranasal trivalent 08/14/2013 Influenza, IIV3, injectable 10/03/2010, 0 Influenza, Split (incl. chiki fied surface antigen) 08/13/2012 Influenza, live, intranasal 08/14/2013 MMR 1999,11/09/1996 Meningococcal MPSV4 10/03/2006 Tdap 10/03/2006 Varicella 03/30/2008,08/05/1996 Social History Tobacco Use Types Packs/Day Years Used Date Smoking Tobacco: Never Passive Smoke Exposure: Never Smokeless Tobacco: Never Tobacco Cessation:Counseling Given: Not Answered Depression Answer Date Recorded Patient Health Questionnaire-9 Score 0 03/27/2024 Patient Health Questionnaire-9 Score 0 03/27/2024 Last PHQ-9: Questionnaire Data Not on file 0 03/27/2024 Housing Stability Answer Date Recorded What is your housing situation today? I have etseban billy 03/27/[address] you [...] Orientation Straight 08/27/2022 10 :14 AM EDT Last Filed Vital Signs Vital Sign Reading Time Taken Comments Blood Pressure 127/84 02/22/2025 3:02 PM EDT Pulse 76 02/22/2025 3:02 PM EDT Temperature 36.7 ??C (98.1 ??F) 02/22/2025 3:02 PM ED T Respiratory Rate 18 02/22/2025 3:02 PM EDT Oxygen Saturation 97% 02/22/2025 3:02 PM EDT Inhaled Oxygen Concentration - - Weight 86.6 kg (191 lb) 02/22/2025 3:02 PM EDT Height 188 cm (6' 2 ) 05/12/2024 2:37 PM EDT Body Mass Index 24.52 05/12/2024 2:37 PM EDT Plan of Treatment Health Maintenance Due Date Last Done Comments Disability Screening 1995 Alcohol/Substance Use Screening 2007 Family Planning (PISQ) 2010 HPV Vaccines (3 - Male 3-dose series) 11/06/2013 08/14/2013, 08/13/2012 DTaP/Tdap/Td Vaccines (7 - Td or Tdap) 10/03/2016 10/03/2006, 1999, 11/09/1996, Additional history exists COVID-19 Vaccine ( - season) 2024 Influenza Vaccine (#1) 2024 7, 12/10/2016, 08/14/2013, Additional history exists Depression Screening 03/27/2025 03/27/2024, 03/27/20 24 SDOH Screening 03/27/2025 03/27/2024 Tobacco Screening 02/22/2026 02/22/2025 Zoster Vaccines (1 of 2) 2045 RSV Patients and Patients Aged 60 years or older (1 - 1-dose 75+ series) 2070 HIB Vaccines Completed 11/09/1996, 04/27, 02/11/1996, Additional history exists IPV Vaccines Completed 1999, 04/27, 02/11/1996, Additional history exists Meningococcal Vaccine Aged Out 10/03/2006 No matt cristina eligible based on patient's age to complete this topic Hepatitis A Vaccines Completed 08/14/2013, 10/03/20 10 Hepatitis B Vaccines Completed 05/13/2018, 04/15/2018, 02/11/1996, Additional history exists HIV Screening Completed 05/12/2024 Hepatitis C Screening Completed 05/12/2024 Meningococcal B Vaccine Aged Out No l onger eligible based on patient's age to complete this topic Pneumococcal Vaccine: Pediatrics (0 to 5 Years) and At-Risk Patients (6 to 49) Years) Aged Out No longer eligible based on patient's age to complete this topic RSV under 20 months Aged Out No longe r eligible based on patient's age to complete this topic Rotavirus Vaccines Aged Out No longer eligible based on patient's age to complete this topic Procedures Procedure Name Priority Date/Time Associated Diagnosis Comments HEPATITIS C AB W/REFL TO HCV RNA, QN, PCR Routine 05/12/2024 3:33 PM EDT Routine screening for STI (sexually transmitted infection) HIV 1/2 ANTIGEN/ANTIBODY, FOURTH GENERATION W/RFL Routine 05/12/2024 3:33 PM EDT Routine screening for STI (sexually transmitted infection) from Last 3 Months or Most Recently Relevant to Health Maintenance Results * Hepatitis C Antibody with Reflex to HCV, RNA, Quantitative, Real-Time PCR (05/12/2024 3:33 PM EDT) Hepatitis C Antibody Nonreactive Nonreactive [facility] Comment:Antibodies to HCV no t detected; does not exclude early acuteHCV infection. Blood Venous blood specimen / Unknown 05/12/2024 3:33 PM EDT 05/12/2024 5:20 PM EDT us Sue Gonzales MD LAB BLOOD ORDERABLES Final Resul t [facility] [address] [place] [phone] * HIV-1/2 Antigen and Antibodies, Fourth Generation, with Reflexes (05/12/2024 3:33 PM EDT) HIV AB/AG Nonreactive Nonreactive [facility] Comment:HIV-1 p24 Ag and/or HIV-1/HIV-2 Ab not detected.A test result that is nonreactive does not exclude thepossibility of exposure to or infection with HIV-1 and/orHIV-2. Nonreactive results in this assay for individualswith prior exposure to HIV-1 and/or HIV-2 may be due toantigen and antibody levels that are below the limit ofdetection of this assay.The [employer]umistic Alinity HIV Ag/Ab Combo assay result andsupplemental assay results should be interpreted inconjunction with the patient's clinical presentation,history and other laboratory results. If the results areinconsistent with clinical evidence, additional testing issuggested to confirm the result. Blood Venous blood specimen / Unknown 05/12/2024 3:33 PM EDT 05/12/2024 5:20 PM EDT us Sue Gonzales MD LAB BLOOD ORDERABLES Final Resul t [facility] [address] [place] [phone] from Last 3 Months or Most Recently Relevant to Health Maintenance [place] [address] [place] [id number] C3 Care Teams Food Technician Relationship Specialty Start Date End Date Dee Santiago MD [address] [place] [id number] PCP - General Internal Medicine 05/01/23
[2025-03-16 06:57] LABS: Influenza A PCR NEGATIVE (Negative); Influenza B PCR NEGATIVE (Negative); Resp Syncy Virus RNA Qual PCR NEGATIVE (Negative); SARS COV2 PCR INHOUSE NEGATIVE (Negative)
--- NOTE | 2025-03-16 07:43 | ED_ITS ---
HPI - URI/Sore Throat General Chief Complaint: Upper Respiratory Symptoms Stated Complaint: flu like Time Seen by Provider: 03/16/25 07:31 Source: patient Mode of arrival: ambulatory Limitations: no limitations History of Present Illness ED Provider: DR. Silva HPI Narrative: 29-year-old male came in for evaluation of 2 weeks of cough with green phlegm and congestion, no sick contacts, no recent travel. Patient for the last 2 days been having abdominal cramps with nonbloody watery diarrhea and feel nauseous. No history of intra abdominal surgery. No dysuria, no frequency urination. Related Data Previous Rx's ?Medication ?Instructions ?Recorded ibuprofen 600 mg tablet 600 mg PO Q6H PRN pain #30 tabs 08/30/23 amoxicillin 875 mg-potassium 1 tab PO Q12H 10 days #20 tabs 04/07/24 clavulanate 125 mg tablet naproxen 500 mg tablet 500 mg PO BID PRN pain 7 days #14 04/07/24 tabs albuterol sulfate 90 mcg/actuation 2 puff inhalation Q6H PRN 03/16/25 aerosol inhaler shortness of breath or wheezing #6.7 grams azithromycin 250 mg tablet See Rx Instructions PO .COMPLEX #6 03/16/25 (Zithromax Z-Rocky) tabs prednisone 20 mg tablet 20 mg PO BID #10 tabs 03/16/25 Allergies Allergy/AdvReac Type Severity Reaction Status Date / Time No Known Allergies Allergy Verified 03/16/25 06:07 Review of Systems Review of Systems: all other systems are reviewed and are negative Constitutional: Reports as per HPI and Reports no additional constitutional complaints Eyes: Reports as per HPI and Reports no additional eye complaints Reports system reviewed and no additional complaints, except as documented Cardiovascular: Reports as per HPI and Reports no additional cardiovascular complaints Respiratory: Reports as per HPI and Reports no additional respiratory complaints Gastrointestinal: Reports as per HPI and Reports no additional gastrointestinal complaints Genitourinary: Reports no additional female genitourinary complaints Musculoskeletal: Reports no additional musculoskeletal complaints Skin/Breast: Reports system reviewed and no additional complaints, except as docu Psychiatric: Reports no additional psychiatric complaints Endocrine: Reports no additional endocrine complaints Hematologic/Lymphatic: Reports no additional hematologic/lymphatic complaints Allergic/Immunologic: Reports no additional allergic/immunologic complaints Reports system reviewed and no additional complaints, except as documented and Reports Abnormal speech present [facility] Past Medical History Medical History Migraines Patient denies medical problems Social History Social History Unable to assess alcohol history related to: Unknown Alcohol intake: current Alcohol intake frequency: holidays/special occasions only Smoked in Last 30 Days: No Use of substances other than those prescribed or required for medical reasons: No Advance Directives: No Advance Directives Information Provided: Yes Current occupation: labor delivery rn/ left hand Physical Exam Vital Signs: Vital Signs: Last Vital Signs Temp 98.1 F 03/16/25 06:44 Pulse 65 03/16/25 06:44 Resp 17 03/16/25 06:44 BP 122/84 03/16/25 06:44 Pulse Ox 96 03/16/25 06:46 O2 Del Method Room Air 03/16/25 06:46 BMI result Body Mass Index 25.0 Vital signs have been reviewed and appear to be correct. Blood pressure elevated. Heart rate normal. Respiratory rate normal. Temperature normal. Oxygen saturation normal. Appearance: Alert. Oriented X3. No acute distress. Head: Normal external exam. Normocephalic. Atraumatic. No Nation signs noted. No raccoon eyes noted Eyes: PERRLA. EOMI. Conjunctiva and sclera normal. Eyelids normal. ENT: TM's Normal. Pharynx normal. Uvula midline. Moist mucous membranes. No trismus noted. No drooling noted. No muffled voice noted. Neck: Normal inspection. Neck supple. FROM. No adenopathy. Thyroid Normal. No meningeal signs. No neck mass noted. CVS: Normal heart rate and rhythm. Heart sound normal. No murmurs noted. Pulses normal throughout. Respiratory: No respiratory distress. Painless inspiration. Breath sounds normal. No wheezes/rales/rhonchi noted. Chest nontender. No accessory muscle usage noted or decreased air movement noted. Abdomen: Soft and nontender. Bowel sounds normal in all 4 quadrants. No distention noted. No organomegaly noted. No visible injury noted. Back: No CVA tenderness. Full range of motion noted. Skin: Skin warm and dry. Normal skin color. Normal skin turgor. No rashes/lesions/lacerations noted. Extremities: No lower extremity edema. Extremities exhibit normal range of motion. Extremities nontender. Neuro: Oriented X 3. Cranial nerve exam: II-XII are grossly intact No motor deficit. No sensory deficit. Reflexes normal. Course Reevaluation(s) Reevaluation #1: bronchitis x2 weeks. Start on Z-Rocky /prednisone/albuterol. Abdominal exam shows no right lower quadrant abdominal pain. Time: 07:46 Medical Decision Making Differential Diagnosis Differential Diagnoses: The differential diagnosis associated with the presentation includes ( pneumonia, pneumothorax, pleural effusion, viral pneumonia, bronchitis, asthma exacerbation, colitis, diverticulitis, acute appendicitis , strep pharyngitis.) Admission/Observation Consideration of admission/observation: Escalation of care including admission/observation considered Lab Data MDM Lab Attestation statement: I reviewed the patient's lab results. Labs: Lab Results 03/16/25 Range/Units 06:14 Influenza Type A (PCR) NEGATIVE (Negative) Influenza Type B (PCR) NEGATIVE (Negative) RSV RNA Qual (PCR) NEGATIVE (Negative) SARS-CoV-2 RNA (RT-PCR) NEGATIVE (Negative) S. pyogenes GrpA EMELINA Negative (Negative) Independent Interpretation I performed an independent interpretation of an: Plain X-Ray ( Chest:Left perihilar bronchitis.) Radiology Impression Discussion of test interpretation with radiology: I have reviewed the radiologist's reading. Discharge Plan Discharge Clinical Impression: Bronchitis Patient Disposition: Home, Self-Care Instructions: Acute Bronchitis (ED) Prescriptions: New azithromycin [Zithromax Z-Rocky] 250 mg tablet See Rx Instructions .ROUTE .COMPLEX Qty: 6 0RF Rx Instructions: For 250 mg dose pack: take 500 mg today (day 1), then 250 mg for 4 days (days 2-5) prednisone 20 mg tablet 20 mg PO BID Qty: 10 0RF albuterol sulfate 90 mcg/actuation HFA aerosol inhaler 2 puff inhalation Q6H PRN (Reason: shortness of breath or wheezing) Qty: 6.7 0RF No Action ibuprofen 600 mg tablet 600 mg PO Q6H PRN (Reason: pain) Qty: 30 0RF amoxicillin-pot clavulanate 875-125 mg tablet 1 tab PO Q12H 10 Days Qty: 20 0RF naproxen 500 mg tablet 500 mg PO BID PRN (Reason: pain) 7 Days Qty: 14 0RF Stand Alone Forms: Work/School Release Print Language: [place]
[2025-03-16 08:13] VITALS: BP 108/61; PULSE 88; RESP 17; TEMP 36.9; O2SAT 97
== END 2025-03-16 08:14 | disposition home or self-care (01) ==
PROVIDERS: Emergency Provider Emergency Medicine
DX: J40 Bronchitis, not specified as acute or chronic (principal); R05.9 Cough, unspecified; R10.2 Pelvic and perineal pain; R19.7 Diarrhea, unspecified; Z03.818 Encounter for observation for suspected exposure to other biological agents ruled out
CPT/HCPCS: 0241U; 71046; 87651; 99283; 99284

== ENCOUNTER → 2025-03-16 06:26 | Outpatient (BNV) | payer MEDICAID, SELFPAY | PROVIDERS: Visit Provider Radiology Diagnostic Radiology | DX: J20.9 Acute bronchitis, unspecified (principal) | CPT/HCPCS: 71046 ==

== ENCOUNTER 2025-06-06 06:41 | Emergency (ER) | payer MEDICAID, SELFPAY ==
--- NOTE | ~2025-06-06 | XR_ITS ---
CLINICAL HISTORY: ankle foot pain 3 view right foot Comparison: None Findings: No fracture or malalignment. No significant osteoarthritis. No tibiotalar joint effusion. IMPRESSION: 1. No acute findings. This document has been electronically signed by: Oliver Wren DO on 06/06/2025 09:05:17
--- NOTE | ~2025-06-06 | XR_ITS ---
CLINICAL HISTORY: ankle foot pain 3 view right ankle Comparison: None Findings: No fracture or malalignment. No significant osteoarthritis. No tibiotalar joint effusion. IMPRESSION: No acute findings. This document has been electronically signed by: Oliver Wren DO on 06/06/2025 09:08:07
[2025-06-06 06:44] VITALS: BP 127/68; PULSE 73; RESP 16; TEMP 36.9; O2SAT 98; BMI 24.4
--- OUTSIDE RECORDS SUMMARY | 2025-06-06 07:27 | XMS_ITS | Encounter Summary ---
Author Organization [employer] Address [address] [place] [address] Care Team Providers Care Cooking Casing And Drying Supervisor Name Role Phone Dee Santiago MD Primary Care Pro vider Reason for Visit * Reason Comments Med Change Request Encounter Details Date Type Department Care Team ([facility] Contact Info) Description 03/27/2024 Refill [facility] [address] [place], [place] [id number] Belinda Stovall NP [address] [place] [address] Social History Tobacco Use Types Packs/Day Years Used Date Smoking Tobacco: Never Passive Smoke Exposure: Never Smokeless Tobacco: Never Depression Answer Date Recorded Patient Health Questionnaire-9 Score 0 03/27/2024 Patient Health Questionnaire-9 Score 0 03/27/2024 Last PHQ-9: Questionnaire Data Not on file 0 03/27/2024 Housing Stability Answer Date Recorded What is your housing situation today? I have esetban billy 03/27/[address] you [...] documented as of this encounter Care Teams Cooking Casing And Drying Supervisor Relationship Specialty Start Date End Date Dee Santiago MD [address] [place] [id number] PCP - General Internal Medicine 05/01/23 documented as of this encounter
--- NOTE | 2025-06-06 07:49 | PC.NURSE ---
patient a&ox3, pt endorses 04/06 rt ankle pain- has not taken anything otc for pain management today. + csm/pulses to RLE, xray performed, vss, pt awaiting evaluation from provider, call portillo within reach, plan of care ongoing.
--- NOTE | 2025-06-06 08:30 | ED.GENADULT ---
HPI - General Adult General Chief complaint: Extremity Injury, Lower Stated complaint: ankle inj Time Seen by Provider: 06/06/25 08:06 Source: patient Mode of arrival: ambulatory Limitations: no limitations History of Present Illness ED Provider: SUZANNA Gee HPI narrative: This is a 29-year-old male presenting with right ankle pain for the past 2 weeks. Patient reports this started status post work-related injury. He reports he was at work pushing a cart and rolled his right ankle he thinks he rolled it out words however unclear. He reports pain has been present ever since. He has not been taking anything for pain. She has been walking on his right lower extremity without difficulty. He reports he decided to come in today because the pain is still present and it has been 2 weeks. He has not seen a specialist. Reports he has not yet been seen for this. Denies numbness, tingling, leg swelling, fevers, chills, shortness of breath. Related Data Previous Rx's ?Medication ?Instructions ?Recorded ibuprofen 600 mg tablet 600 mg PO Q6H PRN pain #30 tabs 08/30/23 amoxicillin 875 mg-potassium 1 tab PO Q12H 10 days #20 tabs 04/07/24 clavulanate 125 mg tablet naproxen 500 mg tablet 500 mg PO BID PRN pain 7 days #14 04/07/24 tabs albuterol sulfate 90 mcg/actuation 2 puff inhalation Q6H PRN 03/16/25 aerosol inhaler shortness of breath or wheezing #6.7 grams azithromycin 250 mg tablet See Rx Instructions PO .COMPLEX #6 03/16/25 (Zithromax Z-Rocky) tabs prednisone 20 mg tablet 20 mg PO BID #10 tabs 03/16/25 naproxen 500 mg tablet 500 mg PO BID PRN pain #14 tabs 06/06/25 Allergies Allergy/AdvReac Type Severity Reaction Status Date / Time No Known Allergies Allergy Verified 06/06/25 06:45 Review of Systems Review of Systems: Yes all other systems are reviewed and are negative PMFSH Past Medical History Attestation statement: The following information was validated with the patient. Source: old records reviewed and nursing notes reviewed Medical History Migraines Patient denies medical problems Social History Social History Unable to assess alcohol history related to: Unknown Alcohol intake: current Alcohol intake frequency: holidays/special occasions only Smoked in Last 30 Days: No Use of substances other than those prescribed or required for medical reasons: No Advance Directives: No Advance Directives Information Provided: Yes Current occupation: service delivery manager/ left hand Physical Exam ED Exam Exam: Appearance: Alert.? Oriented X3.? No acute distress.? Head: Normocephalic, atraumatic, no step-offs or deformities Eyes: Pupils equal, round and reactive to light.? Neck: Normal inspection.? Neck supple.? CVS: Normal heart rate and rhythm.? Pulses normal.? Respiratory: No respiratory distress.? Breath sounds normal.? Abdomen: Soft and nontender.? Skin: Skin warm and dry.? Normal skin color.? Normal skin turgor.? Extremities: No lower extremity edema.? No calf ttp, negative monika b/l. 5/5 strength to bilateral upper and lower extremities + R ankle w/ full range of motion. + 2+ DP,PT,AT b/l. TTP to lateral malleolous on the right Back: No midline tenderness, no C-spine tenderness, full range of motion, no CVA tenderness bilaterally Neuro: Oriented X 3.? No motor deficit.? No sensory deficit. CN 2-12 intact Vital Signs: Vital Signs - 24 hr 06/06/25 06:44 Temperature 98.4 F Pulse Rate 73 Respiratory Rate 16 Blood Pressure 127/68 Pulse Oximetry 98 Oxygen Delivery Method Room Air BMI result Body Mass Index 24.4 vss Course Reevaluation(s) Reevaluation #1: X-rays of foot and ankle in the right unremarkable. Likely sprain or strain. Will have him follow up with PCP and orthopedic if needed. No indication for stirrup or crutches as patient has been ambulatory for weeks. Will send naproxen. Educated patient on diagnosis and treatment plan, answered all question, patient verbalizes understanding. At this time patient will be discharged home, advised to return with new or worsening symptoms. Educated on worrisome signs and symptoms and when to return. At this time I feel comfortable discharge home. Time: 09:16 Medical Decision Making Medical Decision Making [facility] Narrative: [id number] 29-year-old male presents with right ankle pain x2 weeks status post work-related injury and rolling his ankle. Physical exam No lower extremity edema.? No calf ttp, negative monika b/l. 5/5 strength to bilateral upper and lower extremities + R ankle w/ full range of motion. + 2+ DP,PT,AT b/l. TTP to lateral malleolous on the right History and physical exam concerning for sprain or strain. Unlikely fracture dislocation. No distracting injuries or open fractures. History and physical exam not consistent with arterial or venous occlusion. Plan at this time imaging. Patient has been walking on this lower extremity, no indication for crutches or a splint. Differential Diagnosis Differential Diagnoses: The differential diagnosis associated with the presentation includes (History and physical exam concerning for sprain or strain. Unlikely fracture dislocation. No distracting injuries or open fractures. History and physical exam not consistent with arterial or venous occlusion.) Admission/Observation Consideration of admission/observation: Escalation of care including admission/observation considered Independent Interpretation I performed an independent interpretation of an: Plain X-Ray Radiology Impression Discussion of test interpretation with radiology: I have reviewed the radiologist's reading. External Record Review External record reviewed: Inpatient record, Office record, Outpatient record, Prior outpatient labs and Prior outpatient radiology Prescription Management I considered prescription management with: Pain Medication (NSAID ) Critical Care Time Critical Care Time Critical Care Time: No Discharge Plan Discharge Clinical Impression: Ankle sprain and strain Patient Disposition: Home, Self-Care Instructions: Ankle Sprain (ED), P.R.I.C.E. Treatment (ED) Additional Instructions: Take your medications as prescribed. If you were prescribed antibiotics today, it is important that you take your medication to their entirety, do not skip any doses, do not finish them early. Follow-up with your primary care provider this week. Return to the emergency department with new or worsening symptoms. Such as fevers, chills, chest pain, shortness of breath, nausea, vomiting, dizziness, headache, vision changes, lethargy In case of emergency call 911 Please follow-up with orthopedics if pain persists. A small course of anti-inflammatory medicines have been sent to your pharmacy. Please do not drink while taking these. Do not take ibuprofen with these Xray foot and ankle IMPRESSION: 1. No acute findings. Prescriptions: New naproxen 500 mg tablet 500 mg PO BID PRN (Reason: pain) Qty: 14 0RF Rx Instructions: Take with food No Action azithromycin [Zithromax Z-Rocky] 250 mg tablet See Rx Instructions .ROUTE .COMPLEX Qty: 6 0RF Rx Instructions: For 250 mg dose pack: take 500 mg today (day 1), then 250 mg for 4 days (days 2-5) prednisone 20 mg tablet 20 mg PO BID Qty: 10 0RF albuterol sulfate 90 mcg/actuation HFA aerosol inhaler 2 puff inhalation Q6H PRN (Reason: shortness of breath or wheezing) Qty: 6.7 0RF ibuprofen 600 mg tablet 600 mg PO Q6H PRN (Reason: pain) Qty: 30 0RF amoxicillin-pot clavulanate 875-125 mg tablet 1 tab PO Q12H 10 Days Qty: 20 0RF naproxen 500 mg tablet 500 mg PO BID PRN (Reason: pain) 7 Days Qty: 14 0RF [place]: [facility] [place] Group] - 2 weeks Clinical Impression: Ankle sprain and strain Stand Alone Forms: Work/School Release Print Language: [place]
[2025-06-06 09:39] VITALS: BP 122/66; PULSE 68; RESP 16; TEMP 36.8; O2SAT 98
== END 2025-06-06 09:39 | disposition home or self-care (01) ==
PROVIDERS: Emergency Provider Emergency Medicine
DX: S93.401A Sprain of unspecified ligament of right ankle, initial encounter (principal); X50.1XXA Overexertion from prolonged static or awkward postures, initial encounter; Y93.9 Activity, unspecified; Y92.9 Unspecified place or not applicable; Y99.0 Civilian activity done for income or pay
CPT/HCPCS: 73610; 73630; 99283; 99284

== ENCOUNTER → 2025-06-06 06:53 | Outpatient (BNV) | payer MEDICAID, SELFPAY | PROVIDERS: Emergency Provider Emergency Medicine; Visit Provider Radiology Diagnostic Radiology | DX: M25.571 Pain in right ankle and joints of right foot (principal) | CPT/HCPCS: 73610; 73630 ==